=== PATIENT | male | born 1940 | race Caucasian/White ===

== ENCOUNTER 2016-09-20 16:40 | Inpatient (IN) | payer OTHER ==
--- NOTE | 2016-09-20 17:02 | EDPHY ---
H & P Smoking Status: Never smoked Time Seen by Provider: 09/20/16 16:40 HPI/ROS: CHIEF COMPLAINT: Depression HISTORY OF PRESENT ILLNESS: 76-year-old male with a history of severe depression and anxiety presents on an M1 hold for grave disability. His went to a snf 2 months ago. A couple of weeks later he was admitted to [facility] and stayed there for 5 weeks. He has been home for approximately 2 weeks. Since then he has been barely eating or drinking anything. He mainly sits around and listens to the radio all day. A billet worker from [facility] called him today and felt that he was gravely disabled. A billet worker went to his home and placed him on an M1 hold. He has been taking his psychiatric medications as prescribed. He denies suicidal or homicidal ideation. REVIEW OF SYSTEMS: Constitutional: No fever, no chills Eyes: No visual changes ENT: No sore throat Respiratory: No cough, no shortness of breath Cardiac: No chest pain Gastrointestinal: No nausea, no vomiting, no abdominal pain Genitourinary: no dysuria Musculoskeletal: No leg pain or swelling Skin: No rash Neurological: No headache (Anita Hargrove) Past Medical/Surgical History: Depression Anxiety (Anita Hargrove) Physical Exam: General Appearance: alert, appears depressed Eyes: Pupils equal and round, no conjunctival pallor ENT, Mouth: Mucous membranes moist Neck: Normal inspection Respiratory: Lungs are clear to auscultation Cardiovascular: Regular rate and rhythm Gastrointestinal: Abdomen is soft and nontender Neurological: A&O, nonfocal, normal gait Skin: Warm and dry, no rash Extremities: normal inspection Psychiatric: flat affect (Anita Hargrove S) Constitutional: Initial Vital Signs Temperature (C) 36.8 C 09/20/16 16:53 Heart Rate 58 L 09/20/16 16:53 Respiratory Rate 18 09/20/16 16:53 Blood Pressure 144/88 H 09/20/16 16:53 O2 Sat (%) 92 09/20/16 16:53 O2 Delivery Mode Room Air Allergies/Adverse Reactions: No Known Allergies Allergy (Verified 04/19/16 14:01) Home Medications: Medication Instructions Recorded Propranolol HCl 04/19/16 Abilify 10 mg (*) 09/20/16 Buspar (*) 09/20/16 CLONAZEPAM 09/20/16 Prozac 20 MG (*) 09/20/16 Medical Decision Making ED Course/Re-evaluation: 7:00 a.m.- The patient has been stable throughout my shift. He is still awaiting placement. The case will be signed out to the oncoming provider Dr. Morgan. ( Pam Pina) 7:00 a.m. patient care transferred to de . The patient is sitting in bed. He is currently without complaints. He is awaiting placement by mental health. 10:30 a.m. I was approached by case management and nursing staff because the patient would like to leave. He states that we are keeping him here like he is in care home. He is not suicidal or homicidal but is failure to thrive. According to paramedics he has feces all over his house and is completely disheveled. Plan at this point has been to admit him to a psychiatric facility which will likely take some time. This may not be beneficial to him. He may be more appropriate a snf preferably with his . Case management will be looking into this and also contacting his neighbor who is been taking care of him. 12:15 p.m. case management has worked with [facility] and have agreed to lift his hold in place for medical admission in preparation for placement at a long-term nursing facility. This is more appropriate care for this patient who is not suicidal but is depressed and not caring for himself because of separation from his . Ideally he would be at the same snf as his . Spoke with Kendra who accepted for Dr. Rios. His hold has been lifted. (Clifford Morgan) Differential Diagnosis: Partial list of the Differential diagnosis considered include but were not limited to; depression, failure to thrive, dehydration and although unlikely based on the history and physical exam, I also considered pneumonia, suicidality. (Clifford Morgan) - Data Points Laboratory Results: Laboratory Results 09/20/16 17:00 09/20/16 17:00 Medications Given: Discontinued Medications Clonazepam (Klonopin) 0.5 mg PO EDNOW ONE Stop: 09/21/16 03:46 Last Admin: 09/21/16 03:53 Dose: 0.5 mg Lorazepam (Ativan) 1 mg PO EDNOW ONE Stop: 09/20/16 19:19 Last Admin: 09/20/16 19:19 Dose: 1 mg Lorazepam (Ativan) 1 mg PO EDNOW ONE Stop: 09/21/16 10:35 Last Admin: 09/21/16 10:38 Dose: 1 mg Departure - Departure Disposition: [facility] Inpatient Acute Clinical Impression: Severe major depression Failure to thrive Qualifiers: Failure to thrive age range: in adult Qualified Code(s): R62.7 - Adult failure to thrive Condition: Fair Referrals: Patient,NotPresent [Primary Care Provider] - As per Instructions
[2016-09-20 17:11] LABS: % IMMATURE GRANULYOCYTES 0.3 % (0.0-1.1); ABSOLUTE IMMATURE GRANULOCYTES 0.03 10^3/uL (0.00-0.10); ADD DIFF? NO; ADD MORPH? NO; ADD SCAN? NO; ATYPICAL LYMPHOCYTE FLAG 0 (0-99); FRAGMENT RBC FLAG 0 (0-99); HEMOGLOBIN 16.3 g/dL (13.7-17.5); LEFT SHIFT FLG 0 (0-99); LIPEMIA HEMOLYSIS FLAG 90 (0-99); MEAN CELL HEMOGLOBIN 32.3 pg (27.9-34.1); MEAN PLATELET VOLUME 9.5 fL (8.7-11.7); PLATELET CLUMPS FLAG 0 (0-99); PLATELET COUNT 244 10^3/uL (150-400); RED BLOOD CELL COUNT 5.05 10^6/uL (4.40-6.38); RED CELL DISTRIBUTION WIDTH 13.2 % (11.5-15.2)
[2016-09-20 17:23] LABS: ANION GAP 9 mEq/L (8-16); CALCIUM 9.4 mg/dL (8.5-10.4); CARBON DIOXIDE 22 mEq/l (22-31); CHLORIDE 106 mEq/L (97-110); CREATININE 1.3 mg/dL (0.7-1.3); ETHANOL SERUM < 10 mg/dL (0-10); GLOMERULAR FILTRATION RATE 54; GLUCOSE 92 mg/dL (70-100); POTASSIUM 4.6 mEq/L (3.5-5.2); SODIUM 137 mEq/L (134-144)
[2016-09-20] MEDS ORDERED: LORazepam 1 MG TAB ONE (19:10)
[2016-09-20] MEDS ORDERED: LORazepam 1 MG TAB PO ONE (19:18)
[2016-09-21] MEDS ORDERED: clonazePAM 0.5 MG TAB PO ONE (03:45)
[2016-09-21] MEDS: busPIRone 15 MG TAB PO SCH ×2 (08:39→20:26)
[2016-09-21] MEDS: ARIPiprazole 10 MG TAB PO SCH (08:39)
[2016-09-21] MEDS ORDERED: FLUoxetine 20 MG CAP PO SCH (09:00)
[2016-09-21] MEDS ORDERED: PROPRANOLOL HCL 40 MG TAB PO SCH (09:00)
[2016-09-21] MEDS: clonazePAM 0.5 MG TAB PO PRN (09:33)
[2016-09-21] MEDS ORDERED: LORazepam 1 MG TAB PO ONE ×2 (10:34→12:19)
[2016-09-21] MEDS ORDERED: NS 1,000 ML IV ONE (12:35)
[2016-09-21] MEDS ORDERED: ACETAMINOPHEN 325 MG TAB PO PRN (12:35)
[2016-09-21] MEDS ORDERED: ONDANSETRON 4 MG/2 ML VIAL IVP PRN (12:35)
[2016-09-21] MEDS ORDERED: ONDANSETRON DISINTEGRATING 4 MG TAB PO PRN (12:35)
[2016-09-21] MEDS ORDERED: IBUPROFEN 600 MG TAB PO ONE (14:53)
--- NOTE | 2016-09-21 15:25 | GHP ---
[f rep st] HISTORY AND PHYSICAL DATE OF ADMISSION: 09/21/2016 CHIEF COMPLAINT: Failure to thrive. HISTORY OF PRESENT ILLNESS: A 76-year-old male with a history of anxiety and depression who was brought into the emergency department by a neighbor who has been providing support in the community. Neighbor reports that patient has been calling for assistance and support throughout the day into the wee hours of the night nearly every day. Upon review of his home, was found to have feces of several animals scattered throughout the home. The patient is not adequately feeding himself or caring for himself. The patient was brought into the emergency department for evaluation. In the ED, the patient denies any chest pain, any shortness of breath. Denies abdominal discomfort. Reports chronic constipation, intermittent headache. No vision changes. Denies dysuria , hematuria, lower extremity edema, rashes or subjective fevers or chills. PAST MEDICAL HISTORY: 1. Depression. 2. Anxiety. SOCIAL HISTORY: Negative for tobacco, alcohol or illicit drugs. FAMILY HISTORY: Positive for diabetes and heart disease in an elder brother. ADVANCED DIRECTIVES: Patient is full cor, full tube. He wants his to be his medical decision maker. REVIEW OF SYSTEMS: A 10-point review of systems is negative with the exception of that reported in the HPI. PHYSICAL EXAMINATION: VITAL SIGNS: Blood pressure 118/81, heart rate 68, respiratory rate 18, saturating 96% on room air, 36.5. GENERAL: This is a disheveled-appearing, elderly male in no acute distress. HEENT: Notable for dry mucous membranes. Eye exam is negative for any icterus. CARDIAC: Regular rate and rhythm. PULMONARY: Good respiratory effort. Clear to auscultation bilaterally. GASTROINTESTINAL: Positive bowel sounds. ABDOMEN: Soft. MUSCULOSKELETAL: Negative for any lower extremity edema. SKIN: Negative for any rashes. NEUROLOGIC: Patient is alert and oriented x3. PSYCHIATRIC: Appears depressed on my examination. DATA: White count 8.7, hematocrit 48.0, platelets of 244, creatinine 1.3, baseline near 1.0. U tox is positive for opiates and benzodiazepines. Alcohol is less than 10. Most recent EKG, which I personally reviewed and interpreted, shows sinus rhythm, leftward axis deviation, no acute ST-T changes. ASSESSMENT AND PLAN: This is a 76-year-old male with known depression and anxiety, presenting with failure to thrive. 1. Acute failure to thrive. Per outside reports, the patient's home is an unsafe environment and clearly patient is not effectively caring for himself. Will admit the patient for physical therapy, occupational therapy and cognitive evaluations. 2. Anxiety, depression. Patient denies any suicidal ideation but does describe nearly crippling anxiety at times and depression that keeps him from choosing to interact with the world around him, periodically feed himself, and appears to be disturbing his sleep as well. The patient is seen by mental health mid-level provider as recently as last week, and is on medical regiment to treat his anxiety and depression. Will continue these medications at this time, but suspect we may need a Psychiatry consultation and assistance for medication titration. 3. Prophylaxis with Lovenox. DIET: Regular. DISPOSITION: I expect greater than 2 midnights. The patient is going to require therapy, evaluations and complicated discharge planning for safety and placement. I have discussed the case with the emergency room physician. Patient will be triaged to the medical-surgical floor for failure to thrive. /[id number]/MODL MTDD
[2016-09-21] MEDS: PROPRANOLOL HCL 40 MG TAB PO SCH (20:27)
[2016-09-22 05:59] LABS: ANION GAP 10 mEq/L (8-16); CALCIUM 8.9 mg/dL (8.5-10.4); CARBON DIOXIDE 22 mEq/l (22-31); CHLORIDE 108 mEq/L (97-110); GLOMERULAR FILTRATION RATE > 60; GLUCOSE 84 mg/dL (70-100); POTASSIUM 4.7 mEq/L (3.5-5.2); SODIUM 140 mEq/L (134-144)
[2016-09-22] MEDS: busPIRone 15 MG TAB PO SCH ×2 (10:02→21:08)
[2016-09-22] MEDS: PROPRANOLOL HCL 40 MG TAB PO SCH ×2 (10:02→21:09)
[2016-09-22] MEDS: FLUoxetine 20 MG CAP PO SCH (10:02)
[2016-09-22] MEDS: ENOXAPARIN 40 MG/0.4 ML SYR SC SCH (10:05)
[2016-09-22] MEDS: ARIPiprazole 10 MG TAB PO SCH (10:41)
[2016-09-22] MEDS: clonazePAM 0.5 MG TAB PO PRN ×2 (15:09→21:08)
--- NOTE | 2016-09-22 15:17 | HOSPPROG ---
Hospitalist Progress Note Assessment/Plan: This is a 76-year-old male with known depression and anxiety, presenting with failure to thrive. # Acute failure to thrive- the patient's home is an unsafe environment and clearly patient is not effectively caring for himself oxygen saturations 95%on RA- - PT/OT -case management working hard to sort out options - suspect APS may need to be re-involved if patient doesn't qualify for placement # Mild dehydration - BUN and creatinine normalized overnight with 1L NS # Anxiety, depression- Patient denies any suicidal ideation but does describe nearly crippling anxiety at times and depression that keeps him from choosing to interact with the world around him, periodically feed himself, and appears to be disturbing his sleep as well. - continue home meds - patient needs ongoing MH care after dc - MH vocational case manager aware from ER # Prophylaxis with Lovenox. # diet - taking regular PO # dispo - > 2MN as requiring therapy evals for placement I have discussed the case with CM - working aggressively for dispo options Subjective: constipated Objective: Vital Signs Temp Pulse Resp BP Pulse Ox 36.5 C 60 18 138/79 H 92 09/22/16 07:34 09/22/16 07:34 09/22/16 07:34 09/22/16 07:34 09/22/16 07:34 Laboratory Results 09/22/16 02:12 09/21/16 09/22/16 09/23/16 05:59 05:59 05:59 Intake Total 2400 Balance 2400 - Physical Exam Constitutional: chronically ill appearing Eyes: anicteric sclera Ears, Nose, Mouth, Throat: moist mucous membranes Cardiovascular: regular rate and rhythym Respiratory: no respiratory distress, no rales or rhonchi Gastrointestinal: normoactive bowel sounds, soft, non-tender abdomen Genitourinary: no bladder fullness Skin: warm, normal color Musculoskeletal: No asymmetric calves Neurologic: AAOx3 Psychiatric: depressed, flat affect Lymph, Heme, Immunologic: no cervical LAD ICD10 Worksheet Patient Problems: Problems Problem Status Onset Failure to thrive Acute Severe major depression Acute
[2016-09-22] MEDS ORDERED: BISACODYL 10 MG SUPP PR PRN (16:22)
[2016-09-22] MEDS ORDERED: MAGNESIUM HYDROXIDE 30 ML UDCUP PO PRN (16:22)
[2016-09-22] MEDS ORDERED: LACTULOSE 20 GM/30 ML UDCUP PO PRN (16:22)
[2016-09-22] MEDS: POLYETHYLENE GLYCOL 3350 17 GM PKT PO PRN (17:40)
[2016-09-22] MEDS: SENNOSIDES/DOCUSATE SODIUM TAB PO SCH (21:08)
[2016-09-23] MEDS: ARIPiprazole 10 MG TAB PO SCH (08:28)
[2016-09-23] MEDS: busPIRone 15 MG TAB PO SCH ×2 (08:28→18:41)
[2016-09-23] MEDS: FLUoxetine 20 MG CAP PO SCH (08:28)
[2016-09-23] MEDS: PROPRANOLOL HCL 40 MG TAB PO SCH ×2 (08:28→18:41)
[2016-09-23] MEDS: SENNOSIDES/DOCUSATE SODIUM TAB PO SCH ×2 (08:30→18:41)
[2016-09-23] MEDS: clonazePAM 0.5 MG TAB PO PRN (08:33)
[2016-09-23] MEDS: POLYETHYLENE GLYCOL 3350 17 GM PKT PO PRN (08:38)
[2016-09-23] MEDS: ENOXAPARIN 40 MG/0.4 ML SYR SC SCH (08:40)
--- NOTE | 2016-09-23 17:57 | HOSPPROG ---
Hospitalist Progress Note Assessment/Plan: assessment: 76-year-old male presented to [facility] after [facility] placed him on an M1 hold secondary to safety concerns regarding poor self care, in the setting of anxiety and depression Plan: 1. anxiety and depression. Chronic, patient reports that his depression over the last couple years has led to poor functioning at home - [facility] crisis Center had safety concerns placed him on an M1 hold, then discharging him from the M1 hold in our emergency department - I contacted [facility] today and requested that EPS reassess the patient determine whether he is appropriate for inpatient Behavioral Health stabilization regarding his depression, since [facility] where the original democrat who placed the patient on an M1 hold leading to this presentation - EPS has evaluated the patient and determined that he will be safe to be discharged back into his home environment with increased structure and socialization - renal case manager /social media developer has been intimately involved in the patient's care and she will spend time tomorrow morning with the patient discussing his available resources so that he is able to be safely transitioned back into his home environment - the original perception that we would be able to place the patient in long- term care at [facility] was thought in the patient has no skilled needs and cannot go there for rehab and if he is to pursue long-term care at that facility, he will be financially responsible and the patient is unwilling to take on the responsibility at this time - given the patient has capacity to make medical decisions, he is capable of deciding to be discharged home and this will be facilitated in a safe manner tomorrow morning Diet. Regular Prophylaxis. Low risk patient, SCDs in bed Full Disposition. Anticipated discharge is 09/2019 1:00 a.m. after patient has had arrangements made by case management Subjective: the patient wants to be discharged home, he is anxious about missing his [facility] appointment Objective: Vital Signs Temp Pulse Resp BP Pulse Ox 36.7 C 60 16 119/77 92 09/23/16 16:30 09/23/16 16:30 09/23/16 16:30 09/23/16 16:30 09/23/16 16:30 Laboratory Results 09/22/16 02:12 09/22/16 09/23/16 09/24/16 05:59 05:59 05:59 Intake Total 2400 300 350 Balance 2400 300 350 - Time Spent With Patient Time Spent with Patient: greater than 35 minutes Time Spent with Patient: Greater than 35 minutes spent on this patients care, greater than 50% of time spent counseling, educating, and coordinating care regarding the above mentioned plan. - Physical Exam Constitutional: not in pain, unkempt Cardiovascular: regular rate and rhythym, no murmur, rub, or gallop Respiratory: no respiratory distress, no rales or rhonchi, clear to auscultation Gastrointestinal: normoactive bowel sounds, soft, non-tender abdomen, no palpable masses Neurologic: AAOx3 Psychiatric: interacting appropriately, not encephalopathic, anxious, depressed , No agitated ICD10 Worksheet Patient Problems: Problems Problem Status Onset Severe major depression Acute Failure to thrive Acute
[2016-09-24] MEDS: busPIRone 15 MG TAB PO SCH ×2 (08:45→21:08)
[2016-09-24] MEDS: FLUoxetine 20 MG CAP PO SCH (08:45)
[2016-09-24] MEDS: ARIPiprazole 10 MG TAB PO SCH (08:45)
[2016-09-24] MEDS: PROPRANOLOL HCL 40 MG TAB PO SCH ×2 (08:46→21:08)
[2016-09-24] MEDS: SENNOSIDES/DOCUSATE SODIUM TAB PO SCH ×2 (08:57→21:09)
--- NOTE | 2016-09-24 14:01 | HOSPPROG ---
Hospitalist Progress Note Assessment/Plan: Assessment: 76-year-old male presented to [facility] after [facility] placed him on an M1 hold secondary to safety concerns regarding poor self care, in the setting of anxiety and depression. Today he reports generalized weakness and per PT's evaluation he is too weak to be a candidate for home discharge as he is felt to required a SNF placement. Plan: 1. anxiety and depression. Chronic, patient reports that his depression over the last couple years has led to poor functioning at home - [facility] crisis Center had safety concerns placed him on an M1 hold, then discharging him from the M1 hold in our emergency department 2. Generalized Weakness: -PT/OT -Will need SNF placement 3. FTT Diet. Regular Prophylaxis. Low risk patient, SCDs in bed Full Code Disposition. Awaiting placement. Subjective: Feels weak and unsteady. No SOB, Cough, N/V/D, Fever, Diarrhea. Oral intake is appropriate Objective: Vital Signs Temp Pulse Resp BP Pulse Ox 36.6 C 68 15 130/85 H 92 09/24/16 06:28 09/24/16 08:46 09/24/16 06:28 09/24/16 08:46 09/24/16 06:28 Laboratory Results 09/22/16 02:12 09/23/16 09/24/16 09/25/16 05:59 05:59 05:59 Intake Total 300 1550 Balance 300 1550 - Physical Exam Constitutional: no apparent distress, appears nourished Eyes: PERRL, EOMI Ears, Nose, Mouth, Throat: moist mucous membranes, hearing normal Cardiovascular: regular rate and rhythym, No JVD, No tachycardia Respiratory: no respiratory distress, no rales or rhonchi, clear to auscultation Gastrointestinal: normoactive bowel sounds, soft, non-tender abdomen Genitourinary: no bladder fullness Skin: warm, normal color Musculoskeletal: generalized weakness Neurologic: AAOx3, No facial droop Psychiatric: interacting appropriately, not anxious, not encephalopathic ICD10 Worksheet Patient Problems: Problems Problem Status Onset Failure to thrive Acute Severe major depression Acute
[2016-09-24] MEDS ORDERED: clonazePAM 0.5 MG TAB PO PRN (17:00)
[2016-09-25 06:51] VITALS: RESP 16
[2016-09-25] MEDS: busPIRone 15 MG TAB PO SCH (09:30)
[2016-09-25] MEDS: PROPRANOLOL HCL 40 MG TAB PO SCH (09:30)
[2016-09-25] MEDS: ARIPiprazole 10 MG TAB PO SCH (09:30)
[2016-09-25] MEDS: FLUoxetine 20 MG CAP PO SCH (09:31)
[2016-09-25] MEDS: SENNOSIDES/DOCUSATE SODIUM TAB PO SCH (09:31)
--- NOTE | 2016-09-25 11:59 | HOSPPROG ---
Hospitalist Progress Note Assessment/Plan: Assessment: 76-year-old male presented to [facility] after [facility] placed him on an M1 hold secondary to safety concerns regarding poor self care, in the setting of anxiety and depression. per PT's evaluation he is too weak to be a candidate for home discharge as he is felt to required a SNF placement. Today his weakness is improving. He is awaiting placement Plan: 1. anxiety and depression. Chronic, patient reports that his depression over the last couple years has led to poor functioning at home 2. Generalized Weakness, improving. -PT/OT -Will need SNF placement, pending 3. FTT Diet. Regular Prophylaxis. Low risk patient, SCDs in bed Full Code Disposition. Awaiting placement. Subjective: weakness is improving. He is not sure if he wants a SNF at this time. Placement is pending. Objective: Vital Signs Temp Pulse Resp BP Pulse Ox 36.5 C 64 16 127/76 H 91 L 09/25/16 08:20 09/25/16 08:20 09/25/16 08:20 09/25/16 08:20 09/25/16 08:20 Laboratory Results 09/22/16 02:12 09/24/16 09/25/16 09/26/16 05:59 05:59 05:59 Intake Total 1550 400 Balance 1550 400 - Physical Exam Constitutional: no apparent distress, appears nourished, not in pain Eyes: PERRL, anicteric sclera, EOMI Ears, Nose, Mouth, Throat: moist mucous membranes, hearing normal, ears appear normal, no oral mucosal ulcers Cardiovascular: regular rate and rhythym, no murmur, rub, or gallop Respiratory: no respiratory distress, no rales or rhonchi, clear to auscultation Genitourinary: no bladder fullness Skin: warm, normal color Musculoskeletal: generalized weakness Neurologic: AAOx3 Psychiatric: interacting appropriately, not anxious ICD10 Worksheet Patient Problems: Problems Problem Status Onset Failure to thrive Acute Severe major depression Acute
[2016-09-25 15:57] VITALS: BP 116/81; PULSE 65; TEMP 98; O2SAT 92
--- NOTE | 2016-09-25 15:58 | PDDCSUM ---
Discharge Summary Discharge Summary: HOSPITAL COURSE: 76-year-old male presented to [facility] after [facility] placed him on an M1 hold secondary to safety concerns regarding poor self care, in the setting of anxiety and depression. He was initially weak but has improved with PT/OT. Now felt safe to return home. The patient wants to go home. He does not want a SNF. DDX: 1. anxiety and depression. Chronic, patient reports that his depression over the last couple years has led to poor functioning at home 2. Generalized Weakness, improving. 3. FTT f/u with PCP in one week DC exam: see progress note from today DC Meds: See med Rec total care time spent on discharge including coordination of care is 35 minutes
== END 2016-09-25 18:17 | disposition home or self-care (01) | DRG 641 ==
LOC: EDUNIT# → OBSVTOIN 09-21 12:35 → F1N 09-21 15:42
PROVIDERS: ADMIT Hospitalist; ATTEND Hospitalist
DX: R62.7 Adult failure to thrive (principal); F32.2 Major depressive disorder, single episode, severe without psychotic features; F41.9 Anxiety disorder, unspecified; E86.0 Dehydration; R53.1 Weakness
CPT/HCPCS: 80305; 92523-GN; 97116-GP; 97161-GP; 97165-GO; 97530-GP; 97535-GO; G0480; G8978-GP-CI; G8979-GP-CI; G8980-GP-CI; G8987-GO-CI; G8988-GO-CH; G9168-GN-CH; G9169-GN-CH; G9170-GN-CH; J1650

== ENCOUNTER 2016-10-22 10:10 | Inpatient (IN) | payer OTHER ==
--- NOTE | 2016-10-22 10:16 | EDPHY ---
H & P HPI/ROS: CHIEF COMPLAINT: Weakness, depression HISTORY OF PRESENT ILLNESS: Patient arrives by EMS and is seen at time of arrival. He complains of generalized weakness over the past few days. Gradual onset. Constant duration. [id number] symptoms. No chest pain. No shortness of breath. No cough. No abdominal pain. No urinary complaints. No rashes or lesion. No neck pain or stiffness. No headache. Just feels generalized weakness throughout his entire person. Has been taking his prescribed medications with no changes in the dosing. Has not missed any. Also reports feeling somewhat depressed. He denies any suicidal ideation. No homicidal ideation. Depression is not new for him but has increased recently. No other associated complaints or modifying factors. Patient lives at home alone. He contacted EMS. REVIEW OF SYSTEMS: Ten systems reviewed and are negative unless otherwise noted in the HPI PERTINENT MEDICAL HISTORY: Reviewed EXAMINATION General Appearance: Alert, no distress Head: normocephalic, atraumatic Eyes: Pupils equal and round, no conjunctival pallor or injection ENT, Mouth: Mucous membranes moist. Uvula midline. No erythema or edema Neck: Normal inspection, supple, non-tender Respiratory: Lungs are clear to auscultation. No wheezing, rhonchi or crackles Cardiovascular: Regular rate and rhythm. No murmur. Pulses intact distally Gastrointestinal: Abdomen is soft and nontender. No tympany rigidity. Back: non-tender, no bony abnormalities Neurological: A&O, nonfocal, normal gait. Strength is symmetric in all limbs. No pronator drift. No dysmetria. GCS 15. Skin: Warm and dry, no rash. No petechiae or purpura. Extremities: Nontender, no pedal edema. Symmetric range of motion all 4 limbs. Psychiatric: Mood and affect normal DIFFERENTIAL DIAGNOSES: Including but not limited to weakness, dehydration, urinary tract infection, pneumonia, electrolyte disturbance, depression, influenza MDM: 10:15 a.m. Generalized weakness with some depression. No suicidal ideation. No homicidal ideation. No chest pain, cough, fever, abdominal pain or urinary complaints. Seen at time of arrival by EMS. No acute distress. Vital signs stable. 11:20 a.m. Chest x-ray reveals a left lower lobe pneumonia. No leukocytosis. No fever. No tachycardia. No tachypnea. No hypotension. Oxygenation is 91-93% on room air. He is in no acute distress. 12:15 p.m. Left lobe pneumonia which does qualify as healthcare associated pneumonia. He does not trigger SIRS criteria, thus I did not initially order blood cultures and lactic acid. I discussed the case with the hospitalist, the patient will be admitted to Dr. Duncan. Hospitalist has requested blood cultures and lactic acid. These will be performed prior to administering cefepime and vancomycin. He is admitted in stable condition. 1:30 p.m. Patient remains in the emergency department waiting for his inpatient bed. He is in no acute distress, but when he falls asleep he does become hypoxic into the upper 80s on room air. Will place him on nasal cannula oxygen. SUPERVISION: This patient was independently evaluated without direct examination by the attending physician. Case was discussed with attending physician. Source: Patient, EMS Exam Limitations: No limitations - Medical/Surgical History Hx Asthma: No Hx Chronic Respiratory Disease: No Hx Diabetes: No Hx Cardiac Disease: Yes Hx Renal Disease: No Hx Cirrhosis: No Hx Alcoholism: No Hx HIV/AIDS: No Hx Splenectomy or Spleen Trauma: No Other PMH: htn, clean cardiac cath, depression, anxiety - Social History Smoking Status: Never smoked Constitutional: Initial Vital Signs Temperature (C) 96.8 F 10/22/16 10:21 Heart Rate 69 10/22/16 10:21 Respiratory Rate 18 10/22/16 10:21 Blood Pressure 148/90 H 10/22/16 10:21 O2 Sat (%) 91 L 10/22/16 10:21 O2 Delivery Mode Room Air Allergies/Adverse Reactions: No Known Allergies Allergy (Verified 04/19/16 14:01) Home Medications: Medication Instructions Recorded ARIPiprazole [Abilify 10 mg (*)] 10 mg PO DAILY 09/21/16 FLUoxetine [Prozac 20 MG (*)] 80 mg PO DAILY 09/21/16 Propranolol HCl [Inderal 40mg (*)] 40 mg PO BIDMEAL 09/21/16 busPIRone [Buspar (*)] 30 mg PO BID 09/21/16 clonazePAM [Klonopin (*)] 0.5 mg PO BID PRN 09/21/16 Omeprazole [Prilosec 20 mg] 40 mg PO DAILY 10/22/16 Medical Decision Making - Diagnostics Imaging Results: Imaging Impressions Chest X-Ray 10/22/16 10:15 Impression: 1. Suspect left lower lobe pneumonia. 2. Recommend follow-up until clear. - Data Points Laboratory Results: Laboratory Results 10/22/16 10:48 10/22/16 10:48 10/22/16 10/22/16 10/22/16 11:22 10:48 10:48 WBC 6.97 10^3/uL 10^3/uL (3.80-9.50) RBC 5.00 10^6/uL 10^6/uL (4.40-6.38) Hgb 15.5 g/dL g/dL (13.7-17.5) Hct 46.5 % % (40.0-51.0) MCV 93.0 fL fL (81.5-99.8) MCH 31.0 pg pg (27.9-34.1) MCHC 33.3 g/dL g/dL (32.4-36.7) RDW 12.5 % % (11.5-15.2) Plt Count 219 10^3/uL 10^3/uL (150-400) MPV 9.2 fL fL (8.7-11.7) Neut % (Auto) 74.7 % H % (39.3-74.2) Lymph % (Auto) 17.6 % % (15.0-45.0) [place] % (Auto) 5.6 % % (4.5-13.0) Eos % (Auto) 1.4 % % (0.6-7.6) Baso % (Auto) 0.4 % % (0.3-1.7) Nucleat RBC Rel Count 0.0 % % (0.0-0.2) Absolute Neuts (auto) 5.20 10^3/uL 10^3/uL (1.70-6.50) Absolute Lymphs (auto) 1.23 10^3/uL 10^3/uL (1.00-3.00) Absolute Monos (auto) 0.39 10^3/uL 10^3/uL (0.30-0.80) Absolute Eos (auto) 0.10 10^3/uL 10^3/uL (0.03-0.40) Absolute Basos (auto) 0.03 10^3/uL 10^3/uL (0.02-0.10) Absolute Nucleated RBC 0.00 10^3/uL 10^3/uL (0-0.01) Immature Gran % 0.3 % % (0.0-1.1) Immature Gran # 0.02 10^3/uL 10^3/uL (0.00-0.10) Sodium 144 mEq/L mEq/L (134-144) Potassium 4.2 mEq/L mEq/L (3.5-5.2) Chloride 107 mEq/L mEq/L (97-110) Carbon Dioxide 25 mEq/l mEq/l (22-31) Anion Gap 12 mEq/L mEq/L (8-16) BUN 24 mg/dL H mg/dL (7-23) Creatinine 1.0 mg/dL mg/dL (0.7-1.3) Estimated GFR > 60 Glucose 93 mg/dL mg/dL (70-100) Calcium 9.2 mg/dL mg/dL (8.5-10.4) CK-MB (CK-2) Fraction 1.68 ng/mL ng/mL (0-3.19) Troponin I < 0.012 ng/mL ng/mL (0-0.034) Prealbumin 26.1 mg/dL mg/dL (17.6-36.0) Lipase 61.0 IU/L IU/L (23-300) TSH 1.540 uIU/mL uIU/mL (0.465-4.680) Influenza Typ A,B (DFA) NEGATIVE FOR FLU (NEGATIVE) Medications Given: Discontinued Medications Clonazepam (Klonopin) 0.5 mg PO EDNOW ONE Stop: 10/22/16 11:39 Last Admin: 10/22/16 11:52 Dose: 0.5 mg Clonazepam (Klonopin) 0.5 mg PO EDNOW ONE Stop: 10/22/16 12:17 Last Admin: 10/22/16 12:20 Dose: 0.5 mg Departure - Departure Disposition: [facility] Acute Clinical Impression: HCAP (healthcare-associated pneumonia), Weakness Failure to thrive Qualifiers: Failure to thrive age range: in adult Qualified Code(s): R62.7 - Adult failure to thrive Condition: Good
--- NOTE | 2016-10-22 10:55 | CPEKG ---
Heart Rate: 66 RR Interval: 909 P-R Interval: 172 QRSD Interval: 82 QT Interval: 404 QTC Interval: 424 P [place]: 26 QRS [place]: -17 T Wave [place]: 3 EKG Severity - OTHERWISE NORMAL ECG - EKG Impression: SINUS RHYTHM EKG Impression: BORDERLINE LEFT AXIS DEVIATION Electronically Signed By: Clifford Morgan 22-Oct-2016 13:44:13
[2016-10-22 11:00] LABS: % IMMATURE GRANULYOCYTES 0.3 % (0.0-1.1); ABSOLUTE IMMATURE GRANULOCYTES 0.02 10^3/uL (0.00-0.10); ADD DIFF? NO; ADD MORPH? NO; ADD SCAN? NO; ATYPICAL LYMPHOCYTE FLAG 0 (0-99); FRAGMENT RBC FLAG 0 (0-99); HEMATOCRIT 46.5 % (40.0-51.0); HEMOGLOBIN 15.5 g/dL (13.7-17.5); LEFT SHIFT FLG 0 (0-99); LIPEMIA HEMOLYSIS FLAG 80 (0-99); MEAN CELL HEMOGLOBIN CONCENTR. 33.3 g/dL (32.4-36.7); MEAN PLATELET VOLUME 9.2 fL (8.7-11.7); PLATELET CLUMPS FLAG 0 (0-99); PLATELET COUNT 219 10^3/uL (150-400); RED CELL DISTRIBUTION WIDTH 12.5 % (11.5-15.2)
[2016-10-22 11:15] LABS: ANION GAP 12 mEq/L (8-16); CALCIUM 9.2 mg/dL (8.5-10.4); CARBON DIOXIDE 25 mEq/l (22-31); CHLORIDE 107 mEq/L (97-110); GLOMERULAR FILTRATION RATE > 60; GLUCOSE 93 mg/dL (70-100); POTASSIUM 4.2 mEq/L (3.5-5.2); SODIUM 144 mEq/L (134-144)
[2016-10-22 11:28] LABS: CREATINE KINASE-MB FRACTION 1.68 ng/mL (0-3.19); TROPONIN I < 0.012 ng/mL (0-0.034)
[2016-10-22] MEDS ORDERED: clonazePAM 0.5 MG TAB PO ONE ×2 (11:38→12:16)
[2016-10-22 12:03] LABS: PREALBUMIN 26.1 mg/dL (17.6-36.0)
[2016-10-22] MEDS ORDERED: CEFEPIME HCL 2 GM in D5W 100 ML IV ONE (12:12)
[2016-10-22] MEDS ORDERED: VANCOMYCIN HCL/NORMAL SALINE 250 ML IV ONE (12:12)
[2016-10-22] MEDS ORDERED: ACETAMINOPHEN 325 MG TAB PO PRN (13:24)
[2016-10-22] MEDS ORDERED: ONDANSETRON DISINTEGRATING 4 MG TAB PO PRN (13:24)
[2016-10-22] MEDS ORDERED: ONDANSETRON 4 MG/2 ML VIAL IVP PRN (13:24)
[2016-10-22] MEDS ORDERED: oxyCODONE IR 5 MG TAB PO PRN (13:24)
[2016-10-22] MEDS ORDERED: levOFLOXACIN 750 MG/DEXTROSE/150 ML BAG IV ONE (13:56)
--- NOTE | 2016-10-22 14:29 | GHP ---
[f rep st] HISTORY AND PHYSICAL DATE OF ADMISSION: 10/22/2016 CHIEF COMPLAINT: Depression and weakness. HISTORY OF PRESENT ILLNESS: This is a 76-year-old man who was just recently admitted for failure to thrive, discharged home after he had regained some strength, who presents with weakness. Today, he called EMS because he has been feeling weaker. He says that this is a global issue, has been going on for weeks to months. He has also had some worsening depression. Notably, his is currently in assisted living unable to return home. She had previously been in a shelter facility af ter a fall. His depression has gotten worse since she has been away, which he says has been months. He denies any suicidal ideation. He notably has not had a fever at home. No cough, no dysuria. PAST MEDICAL/SURGICAL HISTORY: 1. Depression. 2. Anxiety. 3. Recent admission here for depression and failure to thrive. MEDICATIONS: Please see medication reconciliation. ALLERGIES: No known drug allergies. SOCIAL HISTORY: He lives at home by himself. His is currently in assisted living facility. D oes not drink or smoke. FAMILY HISTORY: Diabetes. REVIEW OF SYSTEMS: A 10-point review of systems is conducted and is negative except per HPI. PHYSICAL EXAM: VITAL SIGNS: Blood pressure 143/105, heart rate 69, respiration rate 18, saturating 94% on room air, temperature is 36.6. GENERAL: The patient is a pleasant man who appears somewhat depressed, otherwise in no acute distress. HEENT: Shows him to be normocephalic, atraumatic. CAR DIOVASCULAR: Shows a regular rate and rhythm. No murmurs, rubs, or gallops. PULMONARY: Shows his lungs to have distant breath sounds throughout, but I do not appreciate any abnormal respiratory so unds. ABDOMEN: Soft, nontender, nondistended. SKIN: Exam shows no rash. : Exam shows no Fole y. NEUROLOGIC: Exam shows him to be alert and oriented x3. He is moving all extremities. PSYCHIA TRIC: Shows a normal mood and affect. LABS: White count is 6.9, lactate 0.8. Basic metabolic panel is normal. Troponin is negative. Pr e-albumin is 26. He is negative for influenza. DATA: 1. I reviewed his chart. 2. I personally reviewed and interpreted his EKG. EKG is currently unavailable in our system. 3. I discussed this with Fawad Rebolledo PA-C in the emergency department. 4. I personally viewed and interpreted his chest x-ray. This shows possible left lower lobe pneumo aisha. IMPRESSION AND PLAN: A 76-year-old man admitted with ongoing weakness, possible left lower lobe pne umonia. 1. Left lower lobe pneumonia: He technically meets the definition of healthcare associated, howeve r, he is not septic, no white count, has a very borderline pneumonia on x-ray. I will start treatme nt as a community-acquired pneumonia and repeat a chest x-ray in the morning. Low threshold to broa den antibiotics if he decompensates at all though he is not hypoxic, no fever, not tachycardic at th is point. Blood cultures have been sent. 2. Weakness: May be due to left lower lobe pneumonia. I am also very suspicious of this being psy chogenic in the setting of severe depression. I have asked Janel Weber to see him. Hopefully, she w ill be able to see him tomorrow. If not, I would ask for a psychiatry consult. Will have physical therapy, occupational therapy work with him. He may qualify for shelter facility. 3. Depression: Will continue his Abilify, Prozac. 4. Anxiety: Continue his Klonopin for now. 5. Possible essential tremor: I note that he is on propranolol, I believe this very central tremor and not hypertension. I will continue this. 6. Code status: He is full code. 7. Venous thromboembolism risk: He is moderate to high. I will give him Lovenox. /[id number]/MODL
--- NOTE | 2016-10-22 15:43 | CPEKG ---
Heart Rate: 70 RR Interval: 857 P-R Interval: 168 QRSD Interval: 82 QT Interval: 404 QTC Interval: 436 P [place]: 12 QRS [place]: -19 T Wave [place]: -6 EKG Severity - BORDERLINE ECG - EKG Impression: SINUS RHYTHM EKG Impression: BORDERLINE LEFT AXIS DEVIATION EKG Impression: BORDERLINE T ABNORMALITIES, INFERIOR LEADS Electronically Signed By: Jessee Paz 23-Oct-2016 08:23:54
[2016-10-22] MEDS: clonazePAM 0.5 MG TAB PO PRN (16:16)
[2016-10-22] MEDS: PROPRANOLOL HCL 40 MG TAB PO SCH (17:25)
[2016-10-22] MEDS: LORazepam 1 MG TAB PO PRN ×2 (17:25→20:08)
[2016-10-22 17:29] LABS: COLOR YELLOW; LEUKOCYTE ESTERASE,URINE NEGATIVE (NEGATIVE); NITRITE,URINE NEGATIVE (NEGATIVE)
[2016-10-22] MEDS: busPIRone 15 MG TAB PO SCH (20:08)
[2016-10-22] MEDS ORDERED: traZODone 50 MG TAB PO ONE (21:30)
[2016-10-23] MEDS: PROPRANOLOL HCL 40 MG TAB PO SCH ×2 (08:22→18:16)
[2016-10-23] MEDS: ENOXAPARIN 40 MG/0.4 ML SYR SC SCH (08:23)
[2016-10-23] MEDS: busPIRone 15 MG TAB PO SCH ×2 (08:23→20:46)
[2016-10-23] MEDS: ARIPiprazole 10 MG TAB PO SCH (08:23)
[2016-10-23] MEDS: PANTOPRAZOLE SODIUM 40 MG TAB PO SCH (08:24)
[2016-10-23] MEDS: FLUoxetine 20 MG CAP PO SCH (08:24)
[2016-10-23 08:30] LABS: % IMMATURE GRANULYOCYTES 0.3 % (0.0-1.1); ABSOLUTE IMMATURE GRANULOCYTES 0.02 10^3/uL (0.00-0.10); ADD DIFF? NO; ADD MORPH? NO; ADD SCAN? NO; ATYPICAL LYMPHOCYTE FLAG 10 (0-99); FRAGMENT RBC FLAG 0 (0-99); HEMATOCRIT 44.6 % (40.0-51.0); HEMOGLOBIN 15.1 g/dL (13.7-17.5); LEFT SHIFT FLG 0 (0-99); LIPEMIA HEMOLYSIS FLAG 90 (0-99); MEAN CELL HEMOGLOBIN 31.1 pg (27.9-34.1); MEAN CELL HEMOGLOBIN CONCENTR. 33.9 g/dL (32.4-36.7); MEAN PLATELET VOLUME 9.2 fL (8.7-11.7); PLATELET CLUMPS FLAG 10 (0-99); PLATELET COUNT 214 10^3/uL (150-400); RED BLOOD CELL COUNT 4.85 10^6/uL (4.40-6.38); RED CELL DISTRIBUTION WIDTH 12.4 % (11.5-15.2)
[2016-10-23 08:37] LABS: INR 1.01 (0.83-1.16); PROTIME(PATIENT) 13.2 SEC (12.0-15.0)
[2016-10-23 08:52] LABS: ALANINE AMINOTRANSFERASE 20 IU/L (21-72); ALBUMIN 3.8 g/dL (3.5-5.0); ALKALINE PHOSPHATASE 74 IU/L (38-126); ANION GAP 10 mEq/L (8-16); ASPARTATE AMINOTRANSFERASE 15 IU/L (17-59); BILIRUBIN,TOTAL 1.1 mg/dL (0.1-1.4); CALCIUM 9.2 mg/dL (8.5-10.4); CARBON DIOXIDE 24 mEq/l (22-31); CHLORIDE 107 mEq/L (97-110); GLOMERULAR FILTRATION RATE > 60; GLUCOSE 95 mg/dL (70-100); POTASSIUM 4.5 mEq/L (3.5-5.2); SODIUM 141 mEq/L (134-144); TOTAL PROTEIN 6.4 g/dL (6.3-8.2)
[2016-10-23] MEDS ORDERED: NON-FORMULARY NEW DRUG (Omeprazole [Prilosec 20 Mg] 40 MG) PO SCH (09:00)
--- NOTE | 2016-10-23 13:03 | HOSPPROG ---
Hospitalist Progress Note Assessment/Plan: # possible pneumonia - cont levaquin - refused f/u CXR today # depression/anxiety - followed by [facility]; may be driving some of his somatic complaints - Janel Weber to see; ECT? - cont prozac, abilify, klonopin, ativan prn # essential tremor - propranolol # social - CM to evaluate his home living situation; his lives at [facility] Subjective: feels very depressed today; no cough or SOB Objective: Vital Signs Temp Pulse Resp BP Pulse Ox 36.4 C 61 12 114/84 H 92 10/23/16 08:00 10/23/16 08:22 10/23/16 08:00 10/23/16 08:22 10/23/16 08:00 Laboratory Results 10/23/16 08:21 10/23/16 08:21 10/22/16 10/23/16 10/24/16 05:59 05:59 05:59 Intake Total 900 Output Total 200 200 Balance 700 -200 PT 13.2 SEC (12.0-15.0) 10/23/16 08:21 INR 1.01 (0.83-1.16) 10/23/16 08:21 - Physical Exam Constitutional: no apparent distress, appears nourished, other (flat affect) Cardiovascular: regular rate and rhythym, no murmur, rub, or gallop Respiratory: no respiratory distress, no rales or rhonchi, clear to auscultation Gastrointestinal: normoactive bowel sounds, soft, non-tender abdomen, no palpable masses ICD10 Worksheet Patient Problems: Problems Problem Status Onset Chronic Disease [facility]/Transitional Care Acute Severe major depression Acute Failure to thrive Acute HCAP (healthcare-associated pneumonia) Acute Failure to thrive Acute Weakness Acute
[2016-10-23] MEDS: clonazePAM 0.5 MG TAB PO PRN (13:18)
[2016-10-23] MEDS: LORazepam 1 MG TAB PO PRN ×2 (14:55→20:47)
[2016-10-23] MEDS: traZODone 50 MG TAB PO SCH (20:47)
--- NOTE | 2016-10-24 08:21 | HOSPPROG ---
Hospitalist Progress Note Assessment/Plan: Patient was recently admitted here for FTT/ he called EMS due to weakness. Today is my first encounter with the patient, chart reviewed. # possible pneumonia - cont levaquin (change to oral) - refused f/u chest xray - blood cx show no growth # depression/anxiety - followed by [facility]; may be driving some of his somatic complaints - Janel Weber to see; - cont prozac, abilify, klonopin, ativan prn -has had 9 ECT treatments the past that he did not feel were helpful #General fatigue, no energy -TSH stable -check a.m. cortisol -trial of Vitamin B 12 shots x 3 days -eating well # essential tremor - propranolol # social - CM to evaluate his home living situation; his lives at [facility] #Plan: reviewed his care with Janel Weber/ she is getting records from [facility]/ appreciate her involvement Subjective: Sukumar says he is tired, depressed, not suicidal. Says he sleeps frequently and appetite is fine. Objective: Vital Signs Temp Pulse Resp BP Pulse Ox 36.6 C 53 L 16 115/67 95 10/24/16 07:52 10/24/16 07:52 10/24/16 07:52 10/24/16 07:52 10/24/16 07:52 Laboratory Results 10/23/16 08:21 10/23/16 08:21 10/23/16 10/24/16 10/25/16 05:59 05:59 05:59 Intake Total 900 500 Output Total 200 200 Balance 700 300 PT 13.2 SEC (12.0-15.0) 10/23/16 08:21 INR 1.01 (0.83-1.16) 10/23/16 08:21 - Physical Exam Constitutional: no apparent distress, appears nourished, not in pain Eyes: PERRL Ears, Nose, Mouth, Throat: hearing normal Cardiovascular: regular rate and rhythym Respiratory: no respiratory distress Gastrointestinal: normoactive bowel sounds Skin: warm, normal color Musculoskeletal: full muscle strength Neurologic: AAOx3 Psychiatric: depressed, flat affect ICD10 Worksheet Patient Problems: Problems Problem Status Onset Chronic Disease Mgmt/Transitional Care Acute Failure to thrive Acute HCAP (healthcare-associated pneumonia) Acute Weakness Acute Failure to thrive Acute Severe major depression Acute
[2016-10-24] MEDS: busPIRone 15 MG TAB PO SCH ×2 (09:25→21:12)
[2016-10-24] MEDS: PROPRANOLOL HCL 40 MG TAB PO SCH ×2 (09:25→17:59)
[2016-10-24] MEDS: FLUoxetine 20 MG CAP PO SCH (09:26)
[2016-10-24] MEDS: PANTOPRAZOLE SODIUM 40 MG TAB PO SCH (09:26)
[2016-10-24] MEDS: ARIPiprazole 10 MG TAB PO SCH (09:26)
[2016-10-24] MEDS: ENOXAPARIN 40 MG/0.4 ML SYR SC SCH (10:43)
[2016-10-24] MEDS: LORazepam 1 MG TAB PO PRN ×2 (11:46→17:59)
[2016-10-24] MEDS: CYANO/VITAMIN B12 1000 MCG/ML VIAL IM SCH (12:46)
[2016-10-24] MEDS ORDERED: POLYETHYLENE GLYCOL 3350 17 GM PKT PO PRN (13:54)
[2016-10-24] MEDS ORDERED: BISACODYL 10 MG SUPP PR PRN (13:54)
[2016-10-24] MEDS ORDERED: MAGNESIUM HYDROXIDE 30 ML UDCUP PO PRN (13:54)
[2016-10-24] MEDS ORDERED: LACTULOSE 20 GM/30 ML UDCUP PO PRN (13:54)
[2016-10-24] MEDS: clonazePAM 0.5 MG TAB PO PRN (15:17)
[2016-10-24] MEDS: SENNOSIDES/DOCUSATE SODIUM TAB PO SCH (21:12)
[2016-10-24] MEDS: traZODone 50 MG TAB PO SCH (21:12)
[2016-10-25] MEDS ORDERED: COSYNTROPIN 0.25 MG/2 ML SYRINGE IVP ONE (06:00)
--- NOTE | 2016-10-25 09:18 | HOSPPROG ---
Hospitalist Progress Note Assessment/Plan: Patient was recently admitted here for FTT/ he called EMS due to weakness. # possible pneumonia - cont levaquin (change to oral) - refused f/u chest xray - blood cx show no growth - dc levaquin on 10/26 # depression/anxiety - followed by [facility]; may be driving some of his somatic complaints - Janel Weber seeing him today - cont prozac, abilify, klonopin, ativan prn - has had 9 ECT treatments the past that he did not feel were helpful #General fatigue, no energy -TSH stable -cortisol level stable -trial of Vitamin B 12 shots x 3 days -eating well # essential tremor/gait disturbances- propranolol -will ask neurology to see -? if he has parkinsonism # social - CM to evaluate his home living situation; his lives at [facility] #Plan: reviewed his care with Janel Weber/ will have neurology see/ complicated situation with worsening depression, gait issues Subjective: Sukumar said he's depressed. Objective: Vital Signs Temp Pulse Resp BP Pulse Ox 36.3 C 54 L 16 111/64 93 10/25/16 08:00 10/25/16 08:00 10/25/16 08:00 10/25/16 08:00 10/25/16 08:00 Laboratory Results 10/23/16 08:21 10/23/16 08:21 10/24/16 10/25/16 10/26/16 05:59 05:59 05:59 Intake Total 500 720 Output Total 200 Balance 300 720 PT 13.2 SEC (12.0-15.0) 10/23/16 08:21 INR 1.01 (0.83-1.16) 10/23/16 08:21 - Physical Exam Constitutional: not in pain, chronically ill appearing Eyes: PERRL Ears, Nose, Mouth, Throat: hearing normal Respiratory: no respiratory distress Skin: warm Musculoskeletal: other (left hand tremor) Neurologic: AAOx3 Psychiatric: interacting appropriately, flat affect ICD10 Worksheet Patient Problems: Problems Problem Status Onset Chronic Disease Mgmt/Transitional Care Acute Failure to thrive Acute HCAP (healthcare-associated pneumonia) Acute Weakness Acute Failure to thrive Acute Severe major depression Acute
[2016-10-25] MEDS: busPIRone 15 MG TAB PO SCH ×2 (09:42→21:37)
[2016-10-25] MEDS: ARIPiprazole 10 MG TAB PO SCH (09:42)
[2016-10-25] MEDS: FLUoxetine 20 MG CAP PO SCH (09:42)
[2016-10-25] MEDS: PANTOPRAZOLE SODIUM 40 MG TAB PO SCH (09:42)
[2016-10-25] MEDS: SENNOSIDES/DOCUSATE SODIUM TAB PO SCH ×2 (09:42→21:37)
[2016-10-25] MEDS: CYANO/VITAMIN B12 1000 MCG/ML VIAL IM SCH (09:42)
[2016-10-25] MEDS: PROPRANOLOL HCL 40 MG TAB PO SCH ×2 (09:43→17:59)
[2016-10-25] MEDS: ENOXAPARIN 40 MG/0.4 ML SYR SC SCH (10:14)
--- NOTE | 2016-10-25 14:40 | GCON ---
[f rep st] CONSULTATION NEUROLOGY CONSULT. DATE OF CONSULTATION: 10/25/2016 REFERRING PROVIDER: Kendra Carty. CHIEF COMPLAINT: Tremor. HISTORY OF PRESENT ILLNESS: The patient is a very pleasant 76-year-old gentleman, who has a longstanding history of cyclic severe depression, who has been on antipsychotics for 20+ years intermittently. He does not know his family history in terms of tremor. He has had failure to thrive intermittently as well. He is now here mainly for depression and possible pneumonia. Some tremor was noted on his exam, and he is on propranolol 40 mg b.i.d. for essential tremor. We are asked to evaluate this further. PAST MEDICAL HISTORY: Depression and anxiety. MEDICATIONS: See reconciliation list. ALLERGIES: No known drug allergies. SOCIAL HISTORY: Lives at home by himself. is in assisted living. FAMILY HISTORY: Diabetes. REVIEW OF SYSTEMS: A 10-point review of system was done with the patient, and only pertinent to the HPI. PHYSICAL EXAMINATION: VITAL SIGNS: Blood pressure 109/64, afebrile, 36.3 Celsius, respiratory rate 16, O2 sats 93%. GENERALLY: The patient was in no acute distress. He had a flat affect and appeared depressed. Denies suicidal ideation. CRANIAL NERVES: He has a flat facial expression, but otherwise normal 2 through 7, 11, 12 on testing. MOTOR: Patient has no focal weakness. He does have increased tone at the right wrist with some cogwheeling intermittently. The patient had some rest tremor and definite action tremor in the upper extremities. SENSORY: Normal to light touch. GAIT: He had normal stride length and some slowness in his gait that appeared antalgic. His turns were normal. Seventy total minutes on the floor today; over 50% in reviewing his previous hospital records, counseling the patient and coordination of care with the primary team IMPRESSION/PLAN: 1. Tremor. 2. Depression. 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 He may have this movement disorder as a result of medication side effects. He has a longstanding history of intermittent use of antipsychotics, which can have extrapyramidal side effects, including Parkinsonism and other types of tremors. We discussed at length. 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 At this point, considering his complex psychosocial and psychiatric history, I recommend we continue his beta-sharon as prescribed, as this has been prescribed for some years, and does not appear to exacerbate his depression. I will be happy to follow up with him as an outpatient to continue to monitor his tremor. The most pressing symptom at this point appears to be his depression. This was discussed with the hospital medicine team, and they are working with behavioral health and considering placement plans. I will look forward to taking care of the patient as an outpatient. We will sign off and follow up as needed. Thank you for this consultation. . /[id number]/MODL MTDD
[2016-10-25] MEDS: LORazepam 1 MG TAB PO PRN ×2 (15:58→21:36)
[2016-10-25] MEDS: traZODone 50 MG TAB PO SCH (21:37)
[2016-10-26] MEDS: FLUoxetine 20 MG CAP PO SCH (08:03)
[2016-10-26] MEDS: PROPRANOLOL HCL 40 MG TAB PO SCH (08:03)
[2016-10-26] MEDS: busPIRone 15 MG TAB PO SCH (08:03)
[2016-10-26] MEDS: ARIPiprazole 10 MG TAB PO SCH (08:04)
[2016-10-26] MEDS: CYANO/VITAMIN B12 1000 MCG/ML VIAL IM SCH (08:04)
[2016-10-26] MEDS: SENNOSIDES/DOCUSATE SODIUM TAB PO SCH (08:04)
[2016-10-26] MEDS: PANTOPRAZOLE SODIUM 40 MG TAB PO SCH (08:04)
[2016-10-26 08:41] VITALS: BP 108/66; PULSE 62; RESP 18; TEMP 98.6; O2SAT 93
[2016-10-26] MEDS: ENOXAPARIN 40 MG/0.4 ML SYR SC SCH (09:35)
--- NOTE | 2016-10-26 11:22 | PDIAF ---
- Diagnosis Diagnosis: weakness/depression Code Status: Full Code - Medication Management Discharge Medications: Medications to Continue on Transfer ARIPiprazole [Abilify 10 mg (*)] 10 mg PO DAILY 09/21/16 [Last Taken 10/21/16] FLUoxetine [Prozac 20 MG (*)] 80 mg PO DAILY 09/21/16 [Last Taken 10/21/16] Propranolol HCl [Inderal 40mg (*)] 40 mg PO BIDMEAL 09/21/16 [Last Taken 18:00] busPIRone [Buspar (*)] 30 mg PO BID 09/21/16 [Last Taken 10/21/16 21:00] clonazePAM [Klonopin (*)] 0.5 mg PO BID PRN 09/21/16 [Last Taken 10/22/16] Omeprazole [Prilosec 20 mg] 40 mg PO DAILY 10/22/16 [Last Taken 10/21/16] Acetaminophen [Tylenol 325mg (*)] 650 mg PO Q4HRS PRN #0 tab 10/26/16 [Last Taken Unknown] Sennosides/Docusate Sodium [Senokot-S] 1 - 2 tab PO BID #0 tab 10/26/16 [Last Taken Unknown] Discharge Medications: Refer to the Discharge Home Medication list for PRN reason. PICC Care - Routine: N/A - Orders Services needed: Registered Nurse, Physical Therapy, Occupational Therapy - Follow Up Care Current Providers and Referrals: Patient,NotPresent [Unknown] - As per Instructions Shon Gallego MD [Medical Doctor] -
--- NOTE | 2016-10-26 14:28 | GDS ---
[f rep st] DISCHARGE SUMMARY DISCHARGE DIAGNOSES: 1. Possible pneumonia. 2. Ongoing major depression. 3. Generalized weakness. 4. General fatigue. 5. Essential tremor, with gait disturbances. CONSULTATIONS: Neurology. PHYSICAL EXAMINATION: GENERAL: The patient is alert. VITAL SIGNS: Afebrile at 37. Pulse is 60. Respiratory rate is 18. Blood pressure is 108/66. He is saturating 93% on room air. I have seen and evaluated the patient on the day of discharge. HOSPITAL COURSE: The patient is a 76-year-old male who presented to the emergency room with complai nts of severe fatigue. He was evaluated and diagnosed with: 1. Possible pneumonia. He was treated with antibiotic therapy during this hospitalization. He ref used a followup chest x-ray. He is saturating appropriately on room air and required no further ant ibiotic treatment. 2. Ongoing major depression. There is a longstanding history for the patient. He did receive a co nsultation during this hospitalization from Janel Pemberton. His medications have been continued. He guzman s ECT in the past, and it was recommended that he follow up with his regular therapist in the outpat ient setting. 3. General fatigue. This was multifactorial. Laboratory evaluation has been within normal limits. He will follow with his primary care doctor. 4. Essential tremor, with gait disturbances. He did receive a consultation from Neurology during t his hospitalization. He was continued on his propranolol, and it is recommended that he follow up w ith a neurologist in the outpatient setting. Dr. Gallego is happy to see him in the outpatient setting. DISPOSITION: The patient will be discharged to [facility] for further rehabilitation and management given his increased weakness and inability to safely discharge home. There are no pending studies. DISCHARGE MEDICATIONS: Please refer to the EMR form. I have not adjusted the patient's previously prescribed home medications to the best of my knowledge. FOLLOWUP: Will be with Dr. Gallego, as well as the patient's primary care provider and his primary ther apist. I spent greater than 35 minutes in the care, coordination, and management of this patient's disposit ion. /[id number]/MODL
== END 2016-10-26 13:00 | DRG 194 ==
LOC: EDUNIT# → F3E 14:40
PROVIDERS: ADMIT Student in an Organized Health Care Education/Training Program; ATTEND Internal Medicine
DX: J18.9 Pneumonia, unspecified organism (principal); F33.9 Major depressive disorder, recurrent, unspecified; R53.1 Weakness; R53.83 Other fatigue; R62.7 Adult failure to thrive; G25.0 Essential tremor; R26.9 Unspecified abnormalities of gait and mobility
CPT/HCPCS: 84134-90; 97116-GP; 97161-GP; 97165-GO; 97530-GP; 97532-GO; 97535-GO; G8978-GP-CK; G8979-GP-CI; G8987-GO-CJ; G8988-GO-CI; J0692; J1650; J1956

== ENCOUNTER 2016-11-19 10:34 | Emergency (ER) | payer OTHER ==
--- NOTE | 2016-11-19 10:51 | CPEKG ---
Heart Rate: 85 RR Interval: 706 P-R Interval: 176 QRSD Interval: 88 QT Interval: 380 QTC Interval: 452 P [place]: 32 QRS [place]: -15 T Wave [place]: 12 EKG Severity - OTHERWISE NORMAL ECG - EKG Impression: SINUS RHYTHM EKG Impression: BORDERLINE LEFT AXIS DEVIATION Electronically Signed By: Jacques Bond 19-Nov-2016 13:09:37
[2016-11-19] MEDS ORDERED: LORazepam 2 MG/ML INJ IVP ONE (11:04)
[2016-11-19] MEDS ORDERED: NS 1,000 ML IV ONE (11:12)
[2016-11-19 11:17] LABS: % IMMATURE GRANULYOCYTES 0.3 % (0.0-1.1); ABSOLUTE IMMATURE GRANULOCYTES 0.03 10^3/uL (0.00-0.10); ADD DIFF? NO; ADD MORPH? NO; ADD SCAN? NO; ATYPICAL LYMPHOCYTE FLAG 0 (0-99); FRAGMENT RBC FLAG 0 (0-99); HEMATOCRIT 50.9 % (40.0-51.0); HEMOGLOBIN 16.8 g/dL (13.7-17.5); LEFT SHIFT FLG 0 (0-99); LIPEMIA HEMOLYSIS FLAG 80 (0-99); MEAN CELL HEMOGLOBIN 30.6 pg (27.9-34.1); MEAN CELL VOLUME 92.7 fL (81.5-99.8); MEAN PLATELET VOLUME 10.4 fL (8.7-11.7); PLATELET CLUMPS FLAG 10 (0-99); PLATELET COUNT 316 10^3/uL (150-400); RED BLOOD CELL COUNT 5.49 10^6/uL (4.40-6.38); RED CELL DISTRIBUTION WIDTH 12.7 % (11.5-15.2)
--- NOTE | 2016-11-19 11:22 | EDPHY ---
H & P Stated Complaint: SVT episode, diaphoretic Time Seen by Provider: 11/19/16 10:57 HPI/ROS: CHIEF COMPLAINT: Palpitations, lightheadedness HISTORY OF PRESENT ILLNESS: The patient presents to the ED by paramedics after he developed palpitations and lightheadedness while at the grocery store. Patient does have a history of anxiety as well as PSVT. The patient takes no regular cardiac medications by his report. The patient was noted to have an SVT by paramedics which responded to a Valsalva maneuver. The patient arrives to the emergency department in a normal sinus rhythm. He received dates his palpitations have improved. He complains only of mild anxiety at this point time. The patient denies any history of exertional chest pain or shortness of breath. The patient denies any history of coronary artery disease. The patient has required adenosine in the past for chemical cardioversion. REVIEW OF SYSTEMS: A comprehensive 10 point review of systems is otherwise negative aside from elements mentioned in the history of present illness. Source: Patient Exam Limitations: No limitations - Personal History Current Tetanus Diphtheria and Acellular Pertussis (TDAP): Yes - Medical/Surgical History Hx Asthma: No Hx Chronic Respiratory Disease: No Hx Diabetes: No Hx Cardiac Disease: Yes Hx Renal Disease: No Hx Cirrhosis: No Hx Alcoholism: No Hx HIV/AIDS: No Hx Splenectomy or Spleen Trauma: No Other PMH: htn, clean cardiac cath, depression, anxiety, SVT - Social History Smoking Status: Never smoked - Physical Exam Exam: General Appearance: Alert, no distress Eyes: Pupils equal and round no pallor or injection ENT, Mouth: Mucous membranes moist Respiratory: There are no retractions, lungs are clear to auscultation Cardiovascular: Regular rate and rhythm Gastrointestinal: Abdomen is soft and nontender, no masses, bowel sounds normal Neurological: A&O, normal motor function, normal sensory exam, normal cranial nerves Skin: Warm and dry, no rashes Musculoskeletal: Neck is supple nontender Extremities: symmetrical, full range of motion Constitutional: Initial Vital Signs Temperature (C) 36.3 C 11/19/16 10:34 Heart Rate 85 11/19/16 10:34 Respiratory Rate 22 H 11/19/16 10:34 Blood Pressure 96/73 L 11/19/16 10:34 O2 Sat (%) 93 11/19/16 10:34 O2 Delivery Mode Room Air Allergies/Adverse Reactions: No Known Allergies Allergy (Verified 04/19/16 14:01) Home Medications: Medication Instructions Recorded ARIPiprazole [Abilify 10 mg (*)] 10 mg PO DAILY 09/21/16 FLUoxetine [Prozac 20 MG (*)] 80 mg PO DAILY 09/21/16 Propranolol HCl [Inderal 40mg (*)] 40 mg PO BIDMEAL 09/21/16 busPIRone [Buspar (*)] 30 mg PO BID 09/21/16 clonazePAM [Klonopin (*)] 0.5 mg PO BID PRN 09/21/16 Omeprazole [Prilosec 20 mg] 40 mg PO DAILY 10/22/16 Acetaminophen [Tylenol 325mg (*)] 650 mg PO Q4HRS PRN #0 tab 10/26/16 Sennosides/Docusate Sodium 1 - 2 tab PO BID #0 tab 10/26/16 [Senokot-S] Medical Decision Making - Diagnostics EKG Interpretation: EKG: Complete interpretation has been separately recorded in the [email or web address] archive. Summary impression: Sinus rhythm, rate 85 ED Course/Re-evaluation: The patient presents to the ED after an episode of resolved SVT. The patient was placed on a quality assurance monitor final. His EKG demonstrates a sinus rhythm without evidence of ischemia. The patient did receive 1 mg of IV Ativan. The patient' s past medical records were reviewed. The patient reportedly does have a history of an unremarkable coronary angiogram. The patient's troponin is normal. The remainder of his laboratory studies are within normal limits. Patient was re-evaluated at 12:30 p.m.. There has been no recurrent arrhythmia in the emergency department. The patient has no significant metabolic abnormality. The patient is comfortable being discharged at this point time. He does understand return to the ED for recurrent palpitations, chest pain or other concerns. Differential Diagnosis: Differential diagnosis considered includes SVT, anxiety, metabolic abnormality, myocardial infarction - Data Points Laboratory Results: Laboratory Results 11/19/16 10:40 11/19/16 10:40 11/19/16 11/19/16 10:40 10:40 WBC 10.28 10^3/uL H 10^3/uL (3.80-9.50) RBC 5.49 10^6/uL 10^6/uL (4.40-6.38) Hgb 16.8 g/dL g/dL (13.7-17.5) Hct 50.9 % % (40.0-51.0) MCV 92.7 fL fL (81.5-99.8) MCH 30.6 pg pg (27.9-34.1) MCHC 33.0 g/dL g/dL (32.4-36.7) RDW 12.7 % % (11.5-15.2) Plt Count 316 10^3/uL 10^3/uL (150-400) MPV 10.4 fL fL (8.7-11.7) Neut % (Auto) 69.0 % % (39.3-74.2) Lymph % (Auto) 22.0 % % (15.0-45.0) [place] % (Auto) 6.2 % % (4.5-13.0) Eos % (Auto) 1.8 % % (0.6-7.6) Baso % (Auto) 0.7 % % (0.3-1.7) Nucleat RBC Rel Count 0.0 % % (0.0-0.2) Absolute Neuts (auto) 7.09 10^3/uL H 10^3/uL (1.70-6.50) Absolute Lymphs (auto) 2.26 10^3/uL 10^3/uL (1.00-3.00) Absolute Monos (auto) 0.64 10^3/uL 10^3/uL (0.30-0.80) Absolute Eos (auto) 0.19 10^3/uL 10^3/uL (0.03-0.40) Absolute Basos (auto) 0.07 10^3/uL 10^3/uL (0.02-0.10) Absolute Nucleated RBC 0.00 10^3/uL 10^3/uL (0-0.01) Immature Gran % 0.3 % % (0.0-1.1) Immature Gran # 0.03 10^3/uL 10^3/uL (0.00-0.10) Sodium 142 mEq/L mEq/L (134-144) Potassium 4.1 mEq/L mEq/L (3.5-5.2) Chloride 107 mEq/L mEq/L (97-110) Carbon Dioxide 19 mEq/l L mEq/l (22-31) Anion Gap 16 mEq/L mEq/L (8-16) BUN 17 mg/dL mg/dL (7-23) Creatinine 1.3 mg/dL mg/dL (0.7-1.3) Estimated GFR 54 Glucose 167 mg/dL H mg/dL (70-100) Calcium 8.8 mg/dL mg/dL (8.5-10.4) Troponin I < 0.012 ng/mL ng/mL (0-0.034) Medications Given: Discontinued Medications Sodium Chloride (Ns) 1,000 mls @ 0 mls/hr IV ONCE ONE PRN Reason: Wide Open Stop: 11/19/16 11:13 Last Admin: 11/19/16 11:14 Dose: 1,000 mls Lorazepam (Ativan Injection) 1 mg IVP EDNOW ONE Stop: 11/19/16 11:05 Last Admin: 11/19/16 11:14 Dose: 1 mg Departure - Departure Disposition: Home, Routine, Self-Care Clinical Impression: Supraventricular tachycardia Condition: Good Instructions: Supraventricular Tachycardia (ED) Additional Instructions: 1. Please return to the emergency department for any recurrent symptoms or other concerns. 2. Please follow up with your regular physician as scheduled. Referrals: Megan Pablo DO [Primary Care Provider] - As per Instructions
[2016-11-19 11:24] LABS: ANION GAP 16 mEq/L (8-16); CALCIUM 8.8 mg/dL (8.5-10.4); CARBON DIOXIDE 19 mEq/l (22-31); CHLORIDE 107 mEq/L (97-110); CREATININE 1.3 mg/dL (0.7-1.3); GLOMERULAR FILTRATION RATE 54; GLUCOSE 167 mg/dL (70-100); POTASSIUM 4.1 mEq/L (3.5-5.2); SODIUM 142 mEq/L (134-144)
[2016-11-19 11:35] LABS: TROPONIN I < 0.012 ng/mL (0-0.034)
[2016-11-19 13:06] VITALS: BP 105/74; PULSE 68; RESP 14; TEMP 98.2; O2SAT 90
== END 2016-11-19 13:22 | disposition home or self-care (01) ==
LOC: EDUNIT#
DX: I47.1 Supraventricular tachycardia (principal); I10 Essential (primary) hypertension
CPT/HCPCS: 93005; 96361; 96374; 99284; J2060

== ENCOUNTER 2016-12-09 16:26 | Emergency (ER) | payer OTHER ==
[2016-12-09 16:38] VITALS: RESP 16
--- NOTE | 2016-12-09 17:26 | EDPHY ---
H & P Time Seen by Provider: 12/09/16 17:25 HPI/ROS: Chief complaint. Abdominal pain HPI. 76-year-old male presents emergency department with complaint of abdominal pain for 2 days. He describes as right lower quadrant and sharp. No nausea or vomiting, diarrhea, urinary symptoms, fever. It is not worse with movement or eating. He feels that it is due to anxiety. He wants anxiety medication only. ROS Constitutional. no fever/chills, no weakness Eyes. no problems with vision ENT. no sore throat, no nasal drainage Cardiovascular. no chest pain Respiratory. no shortness of breath, no cough Abdominal. Right lower quadrant abdominal pain . no problems urinating MS. no calf pain/swelling, no neck/back pain, no joint pain Skin. no rash Lymph. no swollen glands Neuro. no headache, no dizziness, no difficulty walking or with speech Past Medical/Surgical History: Past medical history is significant for hypertension, clean cardiac catheterization, depression, anxiety, SVT Social History: , nonsmoker, no alcohol Smoking Status: Never smoked Physical Exam: General Appearance: Alert well-developed male no distress vital signs stable Eyes: Pupils equal and round no pallor or injection. ENT, Mouth: Mucous membranes are moist. Respiratory: There are no retractions, lungs are clear to auscultation. Cardiovascular: Regular rate and rhythm. Gastrointestinal: Abdomen is soft and nontender, no masses, bowel sounds normal. No pain with deep palpation right side of abdomen. Neurological: Awake and alert, sensory and motor exams grossly normal. Skin: Warm and dry, no rashes. Musculoskeletal: Neck is supple nontender. Extremities symmetrical, full range of motion. Psychiatric: Patient is oriented X 3, there is no agitation. Constitutional: Initial Vital Signs Temperature (C) 37 C 12/09/16 16:36 Heart Rate 83 12/09/16 16:36 Respiratory Rate 16 12/09/16 16:36 Blood Pressure 122/80 H 12/09/16 16:36 O2 Sat (%) 93 12/09/16 16:36 O2 Delivery Mode Room Air Allergies/Adverse Reactions: No Known Allergies Allergy (Verified 04/19/16 14:01) Home Medications: Medication Instructions Recorded ARIPiprazole [Abilify 10 mg (*)] 10 mg PO DAILY 09/21/16 FLUoxetine [Prozac 20 MG (*)] 80 mg PO DAILY 09/21/16 Propranolol HCl [Inderal 40mg (*)] 40 mg PO BIDMEAL 09/21/16 busPIRone [Buspar (*)] 30 mg PO BID 09/21/16 clonazePAM [Klonopin (*)] 0.5 mg PO BID PRN 09/21/16 Omeprazole [Prilosec 20 mg] 40 mg PO DAILY 10/22/16 Acetaminophen [Tylenol 325mg (*)] 650 mg PO Q4HRS PRN #0 tab 10/26/16 Sennosides/Docusate Sodium 1 - 2 tab PO BID #0 tab 10/26/16 [Senokot-S] Medical Decision Making Procedures: Ativan 1 mg orally ED Course/Re-evaluation: Patient refuses workup. He feels that his abdominal pain is due to anxiety. I discussed with him that I thought it is in his best interest to further evaluate his abdominal pain with blood work, urinalysis, CT scan abdomen for concerns of appendicitis and diverticulitis as well as urinary tract infection. He only wants medication for his anxiety and he says he really does not have abdominal pain and he is here because of anxiety. I discussed risks and benefits of this intact including the fact that he could have appendicitis and could rupture. Achy could get much sicker or worse. He may have a finding in his abdomen that require surgery. He expresses understanding and agreement but does not want any further workup other than Ativan We discussed criteria for return and importance of follow-up and further evaluation. He expresses understanding and agreement Differential Diagnosis: I have considered appendicitis, diverticulitis, urinary tract infection Departure - Departure Disposition: Home, Routine, Self-Care Clinical Impression: Anxiety, Abdominal pain Condition: Fair Instructions: Anxiety (ED), Abdominal Pain (ED) Additional Instructions: Continue regular medications. Return for worsening abdominal pain, fever, vomiting. Recheck tomorrow if not back to normal and for any continuing symptoms Referrals: Megan Pablo, [Primary Care Provider] - 1 day, if not improved
[2016-12-09] MEDS ORDERED: LORazepam 1 MG TAB PO ONE ×2 (18:01→20:27)
[2016-12-09 19:49] LABS: % IMMATURE GRANULYOCYTES 0.3 % (0.0-1.1); ABSOLUTE IMMATURE GRANULOCYTES 0.02 10^3/uL (0.00-0.10); ADD DIFF? NO; ADD MORPH? NO; ADD SCAN? NO; ATYPICAL LYMPHOCYTE FLAG 10 (0-99); FRAGMENT RBC FLAG 0 (0-99); HEMATOCRIT 45.4 % (40.0-51.0); HEMOGLOBIN 15.2 g/dL (13.7-17.5); LEFT SHIFT FLG 0 (0-99); LIPEMIA HEMOLYSIS FLAG 80 (0-99); MEAN CELL HEMOGLOBIN 31.5 pg (27.9-34.1); MEAN CELL HEMOGLOBIN CONCENTR. 33.5 g/dL (32.4-36.7); MEAN PLATELET VOLUME 9.9 fL (8.7-11.7); PLATELET CLUMPS FLAG 0 (0-99); PLATELET COUNT 250 10^3/uL (150-400); RED BLOOD CELL COUNT 4.83 10^6/uL (4.40-6.38); RED CELL DISTRIBUTION WIDTH 12.7 % (11.5-15.2)
[2016-12-09 20:03] LABS: ANION GAP 8 mEq/L (8-16); CARBON DIOXIDE 25 mEq/l (22-31); CHLORIDE 105 mEq/L (97-110); CREATININE 1.2 mg/dL (0.7-1.3); ETHANOL SERUM < 10 mg/dL (0-10); GLOMERULAR FILTRATION RATE 59; GLUCOSE 91 mg/dL (70-100); POTASSIUM 4.2 mEq/L (3.5-5.2); SODIUM 138 mEq/L (134-144)
[2016-12-09] MEDS ORDERED: LORazepam 1 MG TAB ONE (20:26)
[2016-12-09 22:39] VITALS: TEMP 97.9
[2016-12-09 23:51] VITALS: BP 128/74; PULSE 71; O2SAT 94
== END 2016-12-10 00:09 | disposition home or self-care (01) ==
DX: R10.31 Right lower quadrant pain (principal); F41.9 Anxiety disorder, unspecified; I10 Essential (primary) hypertension
CPT/HCPCS: 80305; G0480

== ENCOUNTER 2017-01-03 12:26 | Emergency (ER) | payer OTHER ==
[2017-01-03] MEDS ORDERED: LORazepam 1 MG TAB ONE (12:37)
--- NOTE | 2017-01-03 12:38 | EDPHY ---
H & P Time Seen by Provider: 01/03/17 12:36 HPI/ROS: HPI CHIEF COMPLAINT: Anxiety, depression, M1 hold HISTORY OF PRESENT ILLNESS: This patient is a 76-year-old male suffers from depression, anxiety, off his medications for 1 month. Presents emergency room by EMS on M1 held from the crisis Center. States he has been off his medications for over a month. Presents emergency room stating is very depressed with anxiety. He denies suicidal ideation or plan. Past Medical History: Severe depression, anxiety Past Surgical History: Denies Social History: Denies daily use of drugs alcohol tobacco products, lives independently, alone Family History: Noncontributory ROS REVIEW OF SYSTEMS: A comprehensive 10 point review of systems is otherwise negative aside from elements mentioned in the history of present illness. Exam Constitutional disheveled, triage nursing summary reviewed, vital signs reviewed, awake/alert. Eyes normal conjunctivae and sclera, EOMI, PERRLA. HENT normal inspection, atraumatic, moist mucus membranes, no epistaxis, neck supple/ no meningismus, no raccoon eyes. Respiratory clear to auscultation bilaterally, normal breath sounds, no respiratory distress, no wheezing. Cardiovascular rate normal, regular rhythm, no murmur, no edema, distal pulses normal. Gastrointestinal soft, non-tender, no rebound, no guarding, normal bowel sounds, no distension, no pulsatile mass. Genitourinary no CVA tenderness. Musculoskeletal no midline vertebral tenderness, full range of motion, no calf swelling, no tenderness of extremities, no meningismus, good pulses, neurovascularly intact. Skin pink, warm, & dry, no rash, skin atraumatic. Neurologic awake, alert and oriented x 3, AAOx3, moves all 4 extremities equally, motor intact, sensory intact, CN II-XII intact, normal cerebellar, normal vision, normal speech. Psychiatric flat affect Heme/Lymph/Immune no lymphadenopathy. Differential Diagnosis: Includes but is not limited to in a particular order severe depression, major depression disorder, mood disorder, anxiety disorder Medical Decision Making: Plan for this patient blood draw for medical clearance. 1 mg p.o. Ativan. Will need mental health evaluation. He is on M1 hold. Re-evaluation: 1349: JULIO C with EPS. Patient medically cleared. Patient need inpatient psychiatric hospitalization at this time this patient is medically cleared. 2012: This patient has been accepted at [facility] for were. Appropriate transfer be set up. EMTALA form filled out. Source: Patient, EMS - Medical/Surgical History Hx Asthma: No Hx Chronic Respiratory Disease: No Hx Diabetes: No Hx Cardiac Disease: Yes Hx Renal Disease: No Hx Cirrhosis: No Hx Alcoholism: No Hx HIV/AIDS: No Hx Splenectomy or Spleen Trauma: No Other PMH: htn, clean cardiac cath, depression, anxiety, SVT - Social History Smoking Status: Never smoked Constitutional: Initial Vital Signs Temperature (C) 36.5 C 01/03/17 12:26 Heart Rate 68 01/03/17 12:26 Respiratory Rate 16 01/03/17 12:26 Blood Pressure 129/75 H 01/03/17 12:26 O2 Sat (%) 94 01/03/17 12:26 O2 Delivery Mode Room Air Allergies/Adverse Reactions: No Known Allergies Allergy (Verified 04/19/16 14:01) Home Medications: Medication Instructions Recorded ARIPiprazole [Abilify 10 mg (*)] 10 mg PO DAILY 09/21/16 FLUoxetine [Prozac 20 MG (*)] 80 mg PO DAILY 09/21/16 Propranolol HCl [Inderal 40mg (*)] 40 mg PO BIDMEAL 09/21/16 busPIRone [Buspar (*)] 30 mg PO BID 09/21/16 clonazePAM [Klonopin (*)] 0.5 mg PO BID PRN 09/21/16 Omeprazole [Prilosec 20 mg] 40 mg PO DAILY 10/22/16 Acetaminophen [Tylenol 325mg (*)] 650 mg PO Q4HRS PRN #0 tab 10/26/16 Sennosides/Docusate Sodium 1 - 2 tab PO BID #0 tab 10/26/16 [Senokot-S] Medical Decision Making - Data Points Laboratory Results: Laboratory Results 01/03/17 12:45 01/03/17 12:45 01/03/17 01/03/17 01/03/17 12:45 12:45 12:45 WBC 9.75 10^3/uL H 10^3/uL (3.80-9.50) RBC 4.88 10^6/uL 10^6/uL (4.40-6.38) Hgb 15.3 g/dL g/dL (13.7-17.5) Hct 45.5 % % (40.0-51.0) MCV 93.2 fL fL (81.5-99.8) MCH 31.4 pg pg (27.9-34.1) MCHC 33.6 g/dL g/dL (32.4-36.7) RDW 13.2 % % (11.5-15.2) Plt Count 282 10^3/uL 10^3/uL (150-400) MPV 9.6 fL fL (8.7-11.7) Neut % (Auto) 73.3 % % (39.3-74.2) Lymph % (Auto) 17.3 % % (15.0-45.0) [place] % (Auto) 8.1 % % (4.5-13.0) Eos % (Auto) 0.6 % % (0.6-7.6) Baso % (Auto) 0.5 % % (0.3-1.7) Nucleat RBC Rel Count 0.0 % % (0.0-0.2) Absolute Neuts (auto) 7.14 10^3/uL H 10^3/uL (1.70-6.50) Absolute Lymphs (auto) 1.69 10^3/uL 10^3/uL (1.00-3.00) Absolute Monos (auto) 0.79 10^3/uL 10^3/uL (0.30-0.80) Absolute Eos (auto) 0.06 10^3/uL 10^3/uL (0.03-0.40) Absolute Basos (auto) 0.05 10^3/uL 10^3/uL (0.02-0.10) Absolute Nucleated RBC 0.00 10^3/uL 10^3/uL (0-0.01) Immature Gran % 0.2 % % (0.0-1.1) Immature Gran # 0.02 10^3/uL 10^3/uL (0.00-0.10) Sodium 137 mEq/L mEq/L (134-144) Potassium 4.3 mEq/L mEq/L (3.5-5.2) Chloride 105 mEq/L mEq/L (97-110) Carbon Dioxide 21 mEq/l L mEq/l (22-31) Anion Gap 11 mEq/L mEq/L (8-16) BUN 24 mg/dL H mg/dL (7-23) Creatinine 1.2 mg/dL mg/dL (0.7-1.3) Estimated GFR 59 Glucose 105 mg/dL H mg/dL (70-100) Calcium 9.4 mg/dL mg/dL (8.5-10.4) TSH 2.500 uIU/mL uIU/mL (0.465-4.680) Salicylates < 1.0 mg/dL L mg/dL (2.0-20.0) Urine Opiates Screen Acetaminophen < 10 mcg/mL L mcg/mL (10.0-30.0) Urine Barbiturates Ur Phencyclidine Scrn Ur Amphetamine Screen U Benzodiazepines Scrn Urine Cocaine Screen U Marijuana (THC) Screen Ethyl Alcohol < 10 mg/dL mg/dL (0-10) 01/03/17 09:36 WBC RBC Hgb Hct MCV MCH MCHC RDW Plt Count MPV Neut % (Auto) Lymph % (Auto) [place] % (Auto) Eos % (Auto) Baso % (Auto) Nucleat RBC Rel Count Absolute Neuts (auto) Absolute Lymphs (auto) Absolute Monos (auto) Absolute Eos (auto) Absolute Basos (auto) Absolute Nucleated RBC Immature Gran % Immature Gran # Sodium Potassium Chloride Carbon Dioxide Anion Gap BUN Creatinine Estimated GFR Glucose Calcium TSH Salicylates Urine Opiates Screen NEGATIVE (NEGATIVE) Acetaminophen Urine Barbiturates NEGATIVE (NEGATIVE) Ur Phencyclidine Scrn NEGATIVE (NEGATIVE) Ur Amphetamine Screen NEGATIVE (NEGATIVE) U Benzodiazepines Scrn NEGATIVE (NEGATIVE) Urine Cocaine Screen NEGATIVE (NEGATIVE) U Marijuana (THC) Screen NEGATIVE (NEGATIVE) Ethyl Alcohol Medications Given: Discontinued Medications Lorazepam (Ativan) 1 mg PO EDNOW ONE Stop: 01/03/17 12:50 Last Admin: 01/03/17 12:49 Dose: 1 mg Lorazepam (Ativan) 1 mg PO EDNOW ONE Stop: 01/03/17 13:31 Last Admin: 01/03/17 13:30 Dose: 1 mg Departure - Departure Disposition: Other Psych, Not Oscar Clinical Impression: Depression Qualifiers: Depression Type: major depressive disorder Major depression recurrence: single episode Active/Remission status: currently active Major depression episode severity: mild Qualified Code(s): F32.0 - Major depressive disorder, single episode, mild Condition: Fair Referrals: Patient,NotPresent [Primary Care Provider] - As per Instructions
[2017-01-03] MEDS ORDERED: LORazepam 1 MG TAB PO ONE ×2 (12:49→13:30)
[2017-01-03 12:56] VITALS: RESP 16
[2017-01-03 12:56] LABS: % IMMATURE GRANULYOCYTES 0.2 % (0.0-1.1); ABSOLUTE IMMATURE GRANULOCYTES 0.02 10^3/uL (0.00-0.10); ADD DIFF? NO; ADD MORPH? NO; ADD SCAN? NO; ATYPICAL LYMPHOCYTE FLAG 10 (0-99); FRAGMENT RBC FLAG 0 (0-99); HEMATOCRIT 45.5 % (40.0-51.0); HEMOGLOBIN 15.3 g/dL (13.7-17.5); LEFT SHIFT FLG 0 (0-99); LIPEMIA HEMOLYSIS FLAG 80 (0-99); MEAN CELL HEMOGLOBIN 31.4 pg (27.9-34.1); MEAN CELL HEMOGLOBIN CONCENTR. 33.6 g/dL (32.4-36.7); MEAN CELL VOLUME 93.2 fL (81.5-99.8); MEAN PLATELET VOLUME 9.6 fL (8.7-11.7); PLATELET CLUMPS FLAG 0 (0-99); PLATELET COUNT 282 10^3/uL (150-400); RED BLOOD CELL COUNT 4.88 10^6/uL (4.40-6.38); RED CELL DISTRIBUTION WIDTH 13.2 % (11.5-15.2)
[2017-01-03 13:10] LABS: ANION GAP 11 mEq/L (8-16); CALCIUM 9.4 mg/dL (8.5-10.4); CARBON DIOXIDE 21 mEq/l (22-31); CHLORIDE 105 mEq/L (97-110); CREATININE 1.2 mg/dL (0.7-1.3); ETHANOL SERUM < 10 mg/dL (0-10); GLOMERULAR FILTRATION RATE 59; GLUCOSE 105 mg/dL (70-100); POTASSIUM 4.3 mEq/L (3.5-5.2); SALICYLATE < 1.0 mg/dL (2.0-20.0); SODIUM 137 mEq/L (134-144)
[2017-01-03 16:44] VITALS: TEMP 98.1
[2017-01-03 21:47] VITALS: BP 117/61; PULSE 75; O2SAT 94
== END 2017-01-03 21:44 ==
LOC: EDUNIT#
DX: F32.0 Major depressive disorder, single episode, mild (principal); I10 Essential (primary) hypertension
CPT/HCPCS: 80305; G0480

== ENCOUNTER 2017-02-27 12:50 | Emergency (ER) | payer OTHER ==
--- NOTE | 2017-02-27 13:00 | CPEKG ---
Heart Rate: 86 RR Interval: 698 P-R Interval: 176 QRSD Interval: 82 QT Interval: 376 QTC Interval: 450 P [place]: 55 QRS [place]: -11 T Wave [place]: 17 EKG Severity - NORMAL ECG - EKG Impression: SINUS RHYTHM Electronically Signed By: Clifford Morgan 27-Feb-2017 13:12:48
--- NOTE | 2017-02-27 13:10 | EDPHY ---
H & P Time Seen by Provider: 02/27/17 13:01 HPI/ROS: CHIEF COMPLAINT: SVT HISTORY OF PRESENT ILLNESS: The patient is a 76-year-old man with a history of paroxysmal SVT. He was in the grocery store this morning when fire the fighters noticed he did not look very well. They placed him on an EKG and noticed that he was in SVT. This resolved spontaneously but he was brought to the emergency department. He denies having any chest pain or shortness of breath. He complains of penile gland irritation because he states he is not changed his underwear in several days and has mild incontinence. He has not had a fever. No vomiting. No nausea or abdominal pain. REVIEW OF SYSTEMS: Constitutional: denies: chills, fever, recent illness, recent injury EENTM: denies: blurred vision, double vision, nose congestion Respiratory: denies: cough, shortness of breath Cardiac: See HPI Gastrointestinal/Abdominal: denies: abdominal pain, diarrhea, nausea, vomiting, blood streaked stools Genitourinary: See HPI Musculoskeletal: denies: joint pain, muscle pain Skin: denies: lesions, rash, jaundice, bruising Neurological: denies: headache, numbness, paresthesia, tingling, dizziness, weakness Hematologic/Lymphatic: denies: blood clots, easy bleeding, easy bruising Immunologic/allergic: denies: HIV/AIDS, transplant EXAM: GENERAL: Well-appearing, well-nourished and in no acute distress. HEAD: Atraumatic, normocephalic. EYES: Pupils equal round and reactive to light, extraocular movements intact, sclera anicteric, conjunctiva are normal. ENT: TMs normal, nares patent, oropharynx clear without exudates. Moist mucous membranes. NECK: Normal range of motion, supple without lymphadenopathy or JVD. LUNGS: Breath sounds clear to auscultation bilaterally and equal. No wheezes rales or rhonchi. HEART: Regular rate and rhythm without murmurs, rubs or gallops. ABDOMEN: Soft, nontender, normoactive bowel sounds. No guarding, no rebound. No masses appreciated. exam: Patient has mild erythema to the tip of his glans of his penis. No discharge. BACK: No CVA tenderness, no spinal tenderness, step-offs or deformities EXTREMITIES: Normal range of motion, no pitting or edema. No clubbing or cyanosis. NEUROLOGICAL: Cranial nerves II through XII grossly intact. Normal speech, normal gait. 5/5 strength, normal movement in all extremities, normal sensation PSYCH: Normal mood, normal affect. SKIN: Warm, dry, normal turgor, no visible rashes or lesions. Source: Patient Exam Limitations: No limitations - Medical/Surgical History Hx Asthma: No Hx Chronic Respiratory Disease: No Hx Diabetes: No Hx Cardiac Disease: Yes Hx Renal Disease: No Hx Cirrhosis: No Hx Alcoholism: No Hx HIV/AIDS: No Hx Splenectomy or Spleen Trauma: No Other PMH: htn, clean cardiac cath, depression, anxiety, SVT - Family History Significant Family History: No pertinent family hx - Social History Smoking Status: Never smoked Alcohol Use: Sober Drug Use: None Constitutional: Initial Vital Signs Temperature (C) 36.7 C 02/27/17 13:20 Heart Rate 85 02/27/17 13:20 Respiratory Rate 16 02/27/17 13:20 Blood Pressure 120/77 02/27/17 13:20 O2 Sat (%) 98 02/27/17 13:20 O2 Delivery Mode Room Air O2 (L/minute) 4 Allergies/Adverse Reactions: No Known Allergies Allergy (Verified 04/19/16 14:01) Home Medications: Medication Instructions Recorded ARIPiprazole [Abilify 10 mg (*)] 10 mg PO DAILY 09/21/16 FLUoxetine [Prozac 20 MG (*)] 80 mg PO DAILY 09/21/16 Propranolol HCl [Inderal 40mg (*)] 40 mg PO BIDMEAL 09/21/16 busPIRone [Buspar (*)] 30 mg PO BID 09/21/16 clonazePAM [Klonopin (*)] 0.5 mg PO BID PRN 09/21/16 Omeprazole [Prilosec 20 mg] 40 mg PO DAILY 10/22/16 Acetaminophen [Tylenol 325mg (*)] 650 mg PO Q4HRS PRN #0 tab 10/26/16 Sennosides/Docusate Sodium 1 - 2 tab PO BID #0 tab 10/26/16 [Senokot-S] Medical Decision Making - Diagnostics EKG Interpretation: An EKG obtained and was read and documented in trace view. Please see trace view for full reading and report. Sinus rhythm, no acute ischemic changes ED Course/Re-evaluation: The patient remains asymptomatic. I suggested creams and better hygiene with his underwear. He understands and agrees with this plan. He is eager to go home and declines further workup or testing at this time. He will follow up with his running rigger concerning medications to prevent SVT. In the past he has been resistant to taking them. Differential Diagnosis: Partial list of the Differential diagnosis considered include but were not limited to; urinary tract infection, a contact dermatitis, SVT and although unlikely based on the history and physical exam, I also considered acute coronary disease, PE, pneumothorax. I discussed these differential diagnoses and the plan with the patient as well as the usual and expected course. The patient understands that the diagnosis is provisional and that in medicine we are not always correct and that further workup is often warranted. Usual and customary warnings were given. All of the patient's questions were answered. The patient was instructed to return to the emergency department should the symptoms at all worsen or return, otherwise to followup with the physician as we discussed. - Data Points Laboratory Results: Laboratory Results 02/27/17 Unknown 02/27/17 Unknown 02/27/17 02/27/17 02/27/17 Unknown Unknown 14:34 WBC 8.91 10^3/uL 10^3/uL (3.80-9.50) RBC 5.24 10^6/uL 10^6/uL (4.40-6.38) Hgb 16.4 g/dL g/dL (13.7-17.5) Hct 49.9 % % (40.0-51.0) MCV 95.2 fL fL (81.5-99.8) MCH 31.3 pg pg (27.9-34.1) MCHC 32.9 g/dL g/dL (32.4-36.7) RDW 12.9 % % (11.5-15.2) Plt Count 244 10^3/uL 10^3/uL (150-400) MPV 11.1 fL fL (8.7-11.7) Neut % (Auto) 70.7 % % (39.3-74.2) Lymph % (Auto) 21.7 % % (15.0-45.0) [place] % (Auto) 6.2 % % (4.5-13.0) Eos % (Auto) 0.4 % L % (0.6-7.6) Baso % (Auto) 0.7 % % (0.3-1.7) Nucleat RBC Rel Count 0.0 % % (0.0-0.2) Absolute Neuts (auto) 6.30 10^3/uL 10^3/uL (1.70-6.50) Absolute Lymphs (auto) 1.93 10^3/uL 10^3/uL (1.00-3.00) Absolute Monos (auto) 0.55 10^3/uL 10^3/uL (0.30-0.80) Absolute Eos (auto) 0.04 10^3/uL 10^3/uL (0.03-0.40) Absolute Basos (auto) 0.06 10^3/uL 10^3/uL (0.02-0.10) Absolute Nucleated RBC 0.00 10^3/uL 10^3/uL (0-0.01) Immature Gran % 0.3 % % (0.0-1.1) Immature Gran # 0.03 10^3/uL 10^3/uL (0.00-0.10) Sodium 138 mEq/L mEq/L (134-144) Potassium 4.2 mEq/L mEq/L (3.5-5.2) Chloride 104 mEq/L mEq/L (97-110) Carbon Dioxide 21 mEq/l L mEq/l (22-31) Anion Gap 13 mEq/L mEq/L (8-16) BUN 23 mg/dL mg/dL (7-23) Creatinine 1.3 mg/dL mg/dL (0.7-1.3) Estimated GFR 54 Glucose 141 mg/dL H mg/dL (70-100) Calcium 9.3 mg/dL mg/dL (8.5-10.4) Troponin I < 0.012 ng/mL ng/mL (0.000-0.034) Urine Color YELLOW Urine Appearance HAZY Urine pH 5.0 (5.0-7.5) Ur Specific [place] 1.025 (1.002-1.030) Urine Protein NEGATIVE (NEGATIVE) Urine Ketones TRACE H (NEGATIVE) Urine Blood 1+ H (NEGATIVE) Urine Nitrate NEGATIVE (NEGATIVE) Urine Bilirubin NEGATIVE (NEGATIVE) Urine Urobilinogen NEGATIVE EU EU (0.2-1.0) Ur Leukocyte Esterase NEGATIVE (NEGATIVE) Urine RBC 5-10 /hpf H /hpf (0-3) Urine WBC 1-3 /hpf /hpf (0-3) Ur Epithelial Cells NONE SEEN /lpf /lpf (NONE-1+) Urine Mucus TRACE /lpf /lpf (NONE-1+) Urine Glucose NEGATIVE (NEGATIVE) Departure - Departure Disposition: Home, Routine, Self-Care Clinical Impression: Supraventricular tachycardia, Dermatitis Condition: Fair Instructions: Supraventricular Tachycardia (ED), Dermatitis (ED) Additional Instructions: Case Management: You have an appointment tomorrow with your Primary Care Doctor: Megan Pablo at [facility] @ 11:[address] [address] Referrals: Megan Pablo DO [Primary Care Provider] - As per Instructions
[2017-02-27 13:15] LABS: % IMMATURE GRANULYOCYTES 0.3 % (0.0-1.1); ABSOLUTE IMMATURE GRANULOCYTES 0.03 10^3/uL (0.00-0.10); ADD DIFF? NO; ADD MORPH? NO; ADD SCAN? NO; ATYPICAL LYMPHOCYTE FLAG 0 (0-99); FRAGMENT RBC FLAG 0 (0-99); HEMATOCRIT 49.9 % (40.0-51.0); HEMOGLOBIN 16.4 g/dL (13.7-17.5); LEFT SHIFT FLG 0 (0-99); LIPEMIA HEMOLYSIS FLAG 80 (0-99); MEAN CELL HEMOGLOBIN 31.3 pg (27.9-34.1); MEAN CELL HEMOGLOBIN CONCENTR. 32.9 g/dL (32.4-36.7); MEAN CELL VOLUME 95.2 fL (81.5-99.8); MEAN PLATELET VOLUME 11.1 fL (8.7-11.7); PLATELET CLUMPS FLAG 0 (0-99); PLATELET COUNT 244 10^3/uL (150-400); RED BLOOD CELL COUNT 5.24 10^6/uL (4.40-6.38); RED CELL DISTRIBUTION WIDTH 12.9 % (11.5-15.2)
[2017-02-27 13:21] VITALS: RESP 16
[2017-02-27 13:24] LABS: ANION GAP 13 mEq/L (8-16); CALCIUM 9.3 mg/dL (8.5-10.4); CARBON DIOXIDE 21 mEq/l (22-31); CHLORIDE 104 mEq/L (97-110); CREATININE 1.3 mg/dL (0.7-1.3); GLOMERULAR FILTRATION RATE 54; GLUCOSE 141 mg/dL (70-100); POTASSIUM 4.2 mEq/L (3.5-5.2); SODIUM 138 mEq/L (134-144)
[2017-02-27 13:33] LABS: TROPONIN I < 0.012 ng/mL (0.000-0.034)
[2017-02-27 14:48] LABS: COLOR YELLOW; LEUKOCYTE ESTERASE,URINE NEGATIVE (NEGATIVE); NITRITE,URINE NEGATIVE (NEGATIVE)
[2017-02-27 14:54] LABS: MUCUS TRACE /lpf (NONE-1+)
[2017-02-27 15:37] VITALS: BP 105/66; PULSE 83; TEMP 97.7; O2SAT 94
== END 2017-02-27 15:36 | disposition home or self-care (01) ==
LOC: EDUNIT#
DX: I47.1 Supraventricular tachycardia (principal); L30.9 Dermatitis, unspecified; I10 Essential (primary) hypertension

== ENCOUNTER 2017-02-28 16:19 | Emergency (ER) | payer OTHER ==
--- NOTE | 2017-02-28 16:38 | EDPHY ---
H & P Stated Complaint: pt here for depression/denies SI Source: Patient Exam Limitations: No limitations - Personal History Current Tetanus/Diphtheria Vaccine: Yes - Medical/Surgical History Hx Asthma: No Hx Chronic Respiratory Disease: No Hx Diabetes: No Hx Cardiac Disease: Yes Hx Renal Disease: No Hx Cirrhosis: No Hx Alcoholism: No Hx HIV/AIDS: No Hx Splenectomy or Spleen Trauma: No Other PMH: htn, clean cardiac cath, depression, anxiety, SVT - Social History Smoking Status: Never smoked Time Seen by Provider: 02/28/17 16:26 HPI/ROS: CHIEF COMPLAINT: Grave disability HISTORY OF PRESENT ILLNESS: The patient is to the ED on an M1 psychiatric hold with grave disability. The patient has a history of depression. He apparently has been living in a disheveled apartment, not eating and not leaving his apartment. The patient reports he has been depressed. The patient denies any is suicide attempt or ingestion. The patient reports he has not taken medications for depression for several months. The patient states that he feels that he does not need to be hospitalized. The patient denies any acute medical complaints. REVIEW OF SYSTEMS: A comprehensive 10 point review of systems is otherwise negative aside from elements mentioned in the history of present illness. (Jacques Bond) - Physical Exam Exam: General Appearance: Elderly male, no acute distress Eyes: Pupils equal and round no pallor or injection ENT, Mouth: Mucous membranes moist Respiratory: There are no retractions, lungs are clear to auscultation Cardiovascular: Regular rate and rhythm Gastrointestinal: Abdomen is soft and nontender, no masses, bowel sounds normal Neurological: A&O, normal motor function, normal sensory exam, normal cranial nerves Skin: Warm and dry, no rashes Musculoskeletal: Neck is supple nontender Extremities: symmetrical, full range of motion Psychiatric: Endorses depression, thought process is linear and thought content is normal. The patient is cooperative and insightful. Denies suicidal or homicidal ideation (Jacques Bond) Constitutional: Initial Vital Signs Temperature (C) 36.4 C 02/28/17 16:20 Heart Rate 88 02/28/17 16:20 Respiratory Rate 16 02/28/17 16:20 Blood Pressure 99/81 H 02/28/17 16:20 O2 Sat (%) 94 02/28/17 16:20 O2 Delivery Mode Room Air Allergies/Adverse Reactions: No Known Allergies Allergy (Verified 02/28/17 16:20) Home Medications: Medication Instructions Recorded ARIPiprazole [Abilify 10 mg (*)] 10 mg PO DAILY 09/21/16 FLUoxetine [Prozac 20 MG (*)] 80 mg PO DAILY 09/21/16 Propranolol HCl [Inderal 40mg (*)] 40 mg PO BIDMEAL 09/21/16 busPIRone [Buspar (*)] 30 mg PO BID 09/21/16 clonazePAM [Klonopin (*)] 0.5 mg PO BID PRN 09/21/16 Omeprazole [Prilosec 20 mg] 40 mg PO DAILY 10/22/16 Acetaminophen [Tylenol 325mg (*)] 650 mg PO Q4HRS PRN #0 tab 10/26/16 Sennosides/Docusate Sodium 1 - 2 tab PO BID #0 tab 10/26/16 [Senokot-S] Medical Decision Making ED Course/Re-evaluation: I reviewed the patient's past medical records. I discussed his case with his regular psychiatric team at [facility]. They do feel the patient is gravely disabled based upon the state of his apartment. The patient has been placed on an M1 psychiatric hold. They would like the patient to be placed for psychiatric stabilization. The patient is amenable to this plan. The patient has remained stable throughout his stay in the emergency department. He was medically cleared by myself. Psychiatric placement is pending as of 9:00 p.m.. The patient will be turned over to Dr. Pam Pina at 10pm pending psychiatric placement. (Jacques Bond) 7:00 a.m.- The patient has been stable throughout my shift. He is awaiting placement currently. The case will be signed out to the oncoming provider Dr. Quiroga. (Pam Pina) 7:50 a.m.. Patient is stable. Eating breakfast. Awaiting placement 10:10 a.m. patient has been accepted at [facility]. Appropriate paperwork has been filled out and transport are arranged (Rakesh Quiroga) Differential Diagnosis: Differential diagnosis considered includes grave disability, depression, suicidal ideation, homicidal ideation, psychosis (Jacques Bond) - Data Points Laboratory Results: Laboratory Results 02/28/17 16:50 02/28/17 16:50 Medications Given: Discontinued Medications Sodium Chloride (Ns) 1,000 mls @ 0 mls/hr IV EDNOW ONE; Wide Open PRN Reason: Protocol Stop: 02/28/17 17:26 Last Admin: 02/28/17 17:33 Dose: 1,000 mls Departure - Departure Disposition: Other Psych, Not Oscar Clinical Impression: Gravely disabled Depression Qualifiers: Depression Type: major depressive disorder Major depression recurrence: recurrent Active/Remission status: currently active Major depression episode severity: severe Psychotic features: without psychotic features Qualified Code(s ): F33.2 - Major depressive disorder, recurrent severe without psychotic features Condition: Fair Referrals: Megan Pablo DO [Primary Care Provider] - As per Instructions
[2017-02-28] MEDS ORDERED: NS 1,000 ML IV ONE (17:25)
[2017-02-28 17:38] LABS: % IMMATURE GRANULYOCYTES 0.2 % (0.0-1.1); ABSOLUTE IMMATURE GRANULOCYTES 0.02 10^3/uL (0.00-0.10); ADD DIFF? NO; ADD MORPH? NO; ADD SCAN? NO; ATYPICAL LYMPHOCYTE FLAG 0 (0-99); FRAGMENT RBC FLAG 0 (0-99); HEMATOCRIT 47.2 % (40.0-51.0); HEMOGLOBIN 15.7 g/dL (13.7-17.5); LEFT SHIFT FLG 0 (0-99); LIPEMIA HEMOLYSIS FLAG 80 (0-99); MEAN CELL HEMOGLOBIN 31.3 pg (27.9-34.1); MEAN CELL HEMOGLOBIN CONCENTR. 33.3 g/dL (32.4-36.7); MEAN CELL VOLUME 94.2 fL (81.5-99.8); MEAN PLATELET VOLUME 10.2 fL (8.7-11.7); PLATELET CLUMPS FLAG 0 (0-99); PLATELET COUNT 271 10^3/uL (150-400); RED BLOOD CELL COUNT 5.01 10^6/uL (4.40-6.38); RED CELL DISTRIBUTION WIDTH 12.9 % (11.5-15.2)
[2017-02-28 17:39] LABS: ANION GAP 11 mEq/L (8-16); CALCIUM 9.4 mg/dL (8.5-10.4); CARBON DIOXIDE 21 mEq/l (22-31); CHLORIDE 105 mEq/L (97-110); CREATININE 1.1 mg/dL (0.7-1.3); ETHANOL SERUM < 10 mg/dL (0-10); GLOMERULAR FILTRATION RATE > 60; GLUCOSE 156 mg/dL (70-100); POTASSIUM 4.2 mEq/L (3.5-5.2); SODIUM 137 mEq/L (134-144)
[2017-02-28 18:20] LABS: PHENCYCLIDINE URINE BCH < 6 ng/ml (NEGATIVE); PHENCYCLIDINE URINE BCH NEGATIVE (NEGATIVE); TETRAHYDROCANNABINOL URINE < 5 ng/mL (NEGATIVE); TETRAHYDROCANNABINOL URINE NEGATIVE (NEGATIVE)
--- NOTE | 2017-02-28 23:32 | CPEKG ---
Heart Rate: 64 RR Interval: 938 P-R Interval: 176 QRSD Interval: 82 QT Interval: 420 QTC Interval: 434 P [place]: 55 QRS [place]: 30 T Wave [place]: 33 EKG Severity - BORDERLINE ECG - EKG Impression: SINUS RHYTHM EKG Impression: LOW VOLTAGE THROUGHOUT Electronically Signed By: Pam Pina 01-Mar-2017 06:25:20
[2017-03-01] MEDS ORDERED: LORazepam 1 MG TAB ONE (10:15)
[2017-03-01] MEDS ORDERED: LORazepam 1 MG TAB PO ONE (10:15)
[2017-03-01 10:23] VITALS: BP 123/64; PULSE 74; TEMP 97.3; O2SAT 92
[2017-03-01 10:39] VITALS: RESP 16
== END 2017-03-01 11:10 ==
DX: F33.2 Major depressive disorder, recurrent severe without psychotic features (principal); I10 Essential (primary) hypertension; E86.9 Volume depletion, unspecified
CPT/HCPCS: 80307; G0480

== ENCOUNTER 2018-02-03 13:43 | Emergency (ER) | payer OTHER ==
--- NOTE | 2018-02-03 14:17 | EDPHY ---
HPI/HX/ROS/PE/MDM Narrative: CHIEF COMPLAINT: Shaky, fatigued HISTORY OF PRESENT ILLNESS: This patient is a 77 year old male with history of hypertension, SVT, depression , and anxiety. His was admitted to the hospital yesterday, and he stayed here overnight with her. They live at [facility], and he did not take his prescribed medications including Bupropion 150mg, Cymbalta 60mg, Abilify 10mg, last night or this morning. He states he has had "psychological anxiety at times" and was feeling shaky and unwell due to this. He feels fatigued and weak. He denies feeling this way in the past or having withdrawal symptoms related to his medications in the past. A nurse on the floor recommended he present to the emergency room for evaluation. The patient feels better now that he knows his will likely be discharged soon. He denies dehydration. Denies fever, chills, chest pain, shortness of breath, palpitations , vomiting, diarrhea, urinary complaints, headache, lightheadedness. REVIEW OF SYSTEMS: Aside from elements discussed in the HPI, a comprehensive 10-point review of systems was reviewed and is negative. PAST MEDICAL HISTORY: Hypertension, SVT, Depression, Anxiety. SOCIAL HISTORY: . Lives at [facility]. Denies tobacco or alcohol use. VITAL SIGNS: Reviewed by me GENERAL: Mild tremor. Appears somewhat anxious and tremorous. Well-developed, well-nourished, in no respiratory distress. HEENT: Atraumatic. Eyes: No icterus, no injection. No nystagmus. Mouth: moist mucous membranes. No erythema or lesions. Neck: supple with no adenopathy. No meningismus. LUNGS: Clear to auscultation bilaterally, no wheezes, rhonchi or rales. CARDIAC: Regular rate and rhythm, no rubs, murmurs or gallops. ABDOMEN: Soft, nontender, nondistended, bowel sounds normal. BACK: No CVA tenderness. EXTREMITIES: No trauma. No edema. Range of motion is normal throughout. Mild tremor of hands. NEURO: Alert and oriented, grossly nonfocal. Motor 5/5. SKIN: Warm and dry, no rash. PSYCHIATRIC: Normal mentation, no agitation. Portions of this note were transcribed by a spanish medical interpreter. I personally performed a history, physical exam, medical decision making, and confirmed accuracy of information the transcribed note. ED Course: 77 y/o male presents with fatigue and anxiety after missing his evening and morning doses of his prescribed medications. He is mildly tremulous on exam. Plan to confirm his medications with [facility], and administer the missed doses. Plan for labs including CBC, chemistries, troponin to rule out alternate causes for the patient's symptoms. Plan to administer 150mg PO Bupropion, 60mg PO Cymbalta, 10mg PO Abilify. Administered 500mL IV NS. Laboratory studies unremarkable. Troponin negative. 16:00 Consulted with case management. Arrangements made for patient and his to both be discharged and return to [facility] via taxi. Plan to discharge home in good condition. Follow up and return precautions discussed. He can take his regular evening doses of medications tonight. He is comfortable with this plan. MDM: Diff dx considered included dehydration, electrolyte abnormalities, medication withdrawl, anxiety. - Data Points Laboratory Results: Laboratory Results 02/03/18 14:45 02/03/18 14:45 Medications Given: Discontinued Medications Aripiprazole (Abilify) 10 mg PO EDNOW ONE Stop: 02/04/18 14:35 Last Admin: 02/03/18 15:13 Dose: 10 mg Bupropion HCl (Wellbutrin) 150 mg PO TID NIKI Stop: 08/02/18 15:59 Last Admin: 02/03/18 15:13 Dose: 150 mg Duloxetine HCl (Cymbalta) 60 mg PO EDNOW ONE Stop: 02/04/18 14:34 Last Admin: 02/03/18 15:13 Dose: 60 mg Sodium Chloride (Ns) 500 mls @ 1,000 mls/hr IV EDNOW ONE PRN Reason: Protocol Stop: 02/03/18 15:08 Last Admin: 02/03/18 14:55 Dose: 500 mls General Time Seen by Provider: 02/03/18 14:14 Initial Vital Signs: Initial Vital Signs Temperature (C) 36.5 C 02/03/18 13:49 Heart Rate 98 02/03/18 13:49 Respiratory Rate 18 02/03/18 13:49 Blood Pressure 157/109 H 02/03/18 13:49 O2 Sat (%) 92 02/03/18 13:49 O2 Delivery Mode Room Air Allergies/Adverse Reactions: No Known Allergies Allergy (Verified 02/28/17 16:20) Home Medications: Medication Instructions Recorded ARIPiprazole [Abilify 10 mg (*)] 10 mg PO DAILY 09/21/16 FLUoxetine [Prozac 20 MG (*)] 80 mg PO DAILY 09/21/16 Propranolol HCl [Inderal 40mg (*)] 40 mg PO BIDMEAL 09/21/16 busPIRone [Buspar (*)] 30 mg PO BID 09/21/16 clonazePAM [Klonopin (*)] 0.5 mg PO BID PRN 09/21/16 Omeprazole [Prilosec 20 mg] 40 mg PO DAILY 10/22/16 Acetaminophen [Tylenol 325mg (*)] 650 mg PO Q4HRS PRN #0 tab 10/26/16 Sennosides/Docusate Sodium 1 - 2 tab PO BID #0 tab 10/26/16 [Senokot-S] Departure - Departure Disposition: Home, Routine, Self-Care Clinical Impression: Weakness, Tremor, Anxiety Condition: Good Instructions: Weakness (ED) Additional Instructions: 1. Follow up with your primary care provider in 2-3 days. 2. Continue taking your regular medications as prescribed. It is okay to take your nighttime medications as usual. 3. Return to the emergency department for chest pain, shortness of breath, severe weakness, or other worsening of condition or further concerns. Referrals: Sweta Campbell MD [Primary Care Provider] - As per Instructions Report Scribed for: Pascale Reyez Report Scribed by: Althea Lloyd Date of Report: 02/03/18 Time of Report: 15:24
[2018-02-03] MEDS ORDERED: NS 500 ML IV ONE (14:39)
[2018-02-03 14:54] LABS: PLATELET COUNT 231 10^3/uL (150-400)
[2018-02-03] MEDS ORDERED: buPROPion 100 MG TAB PO SCH (16:00)
[2018-02-03] MEDS ORDERED: LORazepam 1 MG TAB PO ONE (16:02)
[2018-02-03 16:23] VITALS: BP 143/94
--- NOTE | 2018-02-03 18:18 | ASMTCMCOM ---
CM Note CM Note Notes: Pt presented to the ED through triage for shakiness and not getting his medications last night or this morning due to being at [facility] w/his , Binta Navarrete, who was was admitted yesterday. Pt lives in Assisted Living at [facility] ([phone]) with Binta. Pt has his medications administered by staff; this CM spoke w/Christy, Health and Multifold Operator. Christy faxed over pt's medication list. Pt's medications were provided in the ED and Christy was updated on what meds were given. Binta was also ready for discharge from inpatient so this CM provided a cab voucher for pt and Binta to return to [place]. Pt had driven to [facility] today but was not safe to drive due to shakiness. Pt says he will find a way back to [facility] tomorrow to mushroom picker his vehicle. CM available for further assistance if needed. Date Signed: 02/03/2018 06:18 PM Electronically Signed By:Keyla Mcclain RN
--- NOTE | 2018-02-03 19:02 | ASDISCHSUM ---
Discharge Information Plan Status:Assisted Living Medically Cleared to Leave: Discharge Date:02/03/2018 04:23 PM CM D/C Disposition:Assisted Living ADT D/C Disposition:Home, Routine, Self-Care Projected Discharge Date:02/03/2018 04:23 PM Transportation at D/C:Cab Voucher Discharge Delay Reason: Follow-Up Date:02/03/2018 04:23 PM Discharge Slot: Final Diagnosis: Placement Information Patient Contact Information Contact Name:AMY Relationship: Address:[address] Work Phone: City:[place] Alternate Phone: [facility]/Zip Code:[place] [address] Email: Financial Information Financial Class:Medicare Primary Plan Desc:MEDICARE OUTPATIENT Primary Plan Number:[id number] Secondary Plan Desc: Secondary Plan Number: Assessment Information [facility] CM Progress Note CM Note CM Note Notes: Pt presented to the ED through triage for shakiness and not getting his medications last night or this morning due to being at [facility] w/his , Binta Navarrete, who was was admitted yesterday. Pt lives in Assisted Living at [facility] ([phone]) with Binta. Pt has his medications administered by staff; this CM spoke w/Christy, Health and Oil Well Fishing Tool Technician. Christy faxed over pt's medication list. Pt's medications were provided in the ED and Christy was updated on what meds were given. Binta was also ready for discharge from inpatient so this CM provided a cab voucher for pt and Binta to return to [place]. Pt had driven to [facility] today but was not safe to drive due to shakiness. Pt says he will find a way back to [facility] tomorrow to picker tender helper his vehicle. CM available for further assistance if needed. Date Signed: 02/03/2018 06:18 PM Electronically Signed By:Keyla Mcclain RN Intervention Information Intervention Type:Cab Vouchers Date of Service:02/03/2018 06:18 PM Patient Type:Emergency Room Staff Member:PK Mcclain Sharon Hours:0.25 Discipline:Tire Trucker Severity: Comment:Due to time constraint and not being a ble to wait for a Medicaid (Binta has Medicaid) cab, olivia and his Binta were provided a cab voucher.
[2018-02-04] MEDS ORDERED: DULoxetine 60 MG CAP PO ONE (14:33)
[2018-02-04] MEDS ORDERED: ARIPiprazole 10 MG TAB PO ONE (14:34)
== END 2018-02-03 16:23 | disposition home or self-care (01) ==
DX: R53.1 Weakness (principal); R25.1 Tremor, unspecified; F41.9 Anxiety disorder, unspecified; I47.1 Supraventricular tachycardia; I10 Essential (primary) hypertension

== ENCOUNTER 2018-04-21 23:38 | Observation (INO) | payer OTHER ==
[2018-04-21] MEDS ORDERED: NS 1,000 ML IV ONE (23:44)
[2018-04-21] MEDS ORDERED: NITROGLYCERIN 0.4 MG BTL SL PRN (23:44)
--- NOTE | 2018-04-21 23:46 | EDPHY ---
H & P Stated Complaint: CP for 5 hrs w/ shoulder pasin bi-lat Time Seen by Provider: 04/21/18 23:45 HPI/ROS: HPI CHIEF COMPLAINT: Chest pressure HISTORY OF PRESENT ILLNESS: 77-year-old male, history of hypertension, GERD, depression, resides at [facility] presents emergency room with chest pressure. Patient states for the past 4-5 hours he has had substernal chest pressure and some achiness in the bilateral shoulders. No arm pain. Denies nausea denies vomiting denies pleuritic pain or shortness of breath. He has never had this before. EMS brought him to the emergency room where he received full-dose aspirin and nitroglycerin. The nitroglycerin dose did improve his chest discomfort. Past Medical History: Hypertension, GERD, depression Past Surgical History: No recent surgery Social History: Pre denies drugs alcohol tobacco Family History: Noncontributory REVIEW OF SYSTEMS: 10 Systems were reviewed and negative with the exception of the elements mentioned in the history of present illness. Exam Constitutional nontoxic, triage nursing summary reviewed, vital signs reviewed , awake/alert. Eyes normal conjunctivae and sclera, EOMI, PERRLA. HENT normal inspection, atraumatic, moist mucus membranes, no epistaxis, neck supple/ no meningismus, no raccoon eyes. Respiratory clear to auscultation bilaterally, normal breath sounds, no respiratory distress, no wheezing. Cardiovascular rate normal, regular rhythm, no murmur, no edema, distal pulses normal. Gastrointestinal soft, non-tender, no rebound, no guarding, normal bowel sounds, no distension, no pulsatile mass. Genitourinary no CVA tenderness. Musculoskeletal bilateral lower extremity trace pitting edema. no midline vertebral tenderness, full range of motion, no calf swelling, no tenderness of extremities, no meningismus, good pulses, neurovascularly intact. Skin pink, warm, & dry, no rash, skin atraumatic. Neurologic awake, alert and oriented x 3, AAOx3, moves all 4 extremities equally, motor intact, sensory intact, CN II-XII intact, normal cerebellar, normal vision, normal speech. Psychiatric normal mood/affect. Heme/Lymph/Immune no lymphadenopathy. Differential diagnosis includes but is not limited to: ACS, atypical chest pain , pneumothorax, pneumonia, pulmonary embolism, aortic dissection, congestive heart failure, tumor, musculoskeletal pain, esophageal pain, GERD, peptic ulcer disease, pancreatitis Medical Decision Making: IV establishment, full cardiac tech, EKG, troponin , has already receive full-dose aspirin, 2nd dose of nitroglycerin to see if this completely improves his chest discomfort. Re-evaluate. Re-evaluation: EKG interpretation by me on record in [employer] system. Impression time of EKG 2350, sinus rhythm rate of 89 normal sinus rhythm no acute ST elevation or ST depression. 1242AM: Patient feels better after nitroglycerin. Full-dose aspirin given prior to arrival. EKG shows no acute ischemia. Troponin noted to be negative. Chest x-ray reviewed. Patient be admitted the hospital for further cardiac evaluation given his chest pressure. HEART Score for Major Cardiac Events from [place] on 04/22/2018 All calculations should be rechecked by clinician prior to use RESULT SUMMARY: 4 points Moderate Score (4-6 points) Risk of MACE of 12-16.6%. INPUTS: History > 1 = Moderately suspicious EKG > 0 = Normal Age > 2 = 65 Risk factors > 1 = 1-2 risk factors Initial troponin > 0 = normal limit Spoke with patient agrees for admission Spoke with Hospalist Dr. Maya agrees to admit. Source: Patient - Personal History Current Tetanus/Diphtheria Vaccine: Unsure Current Tetanus Diphtheria and Acellular Pertussis (TDAP): Unsure - Medical/Surgical History Hx Asthma: No Hx Chronic Respiratory Disease: No Hx Diabetes: No Hx Cardiac Disease: Yes Hx Renal Disease: No Hx Cirrhosis: No Hx Alcoholism: No Hx HIV/AIDS: No Hx Splenectomy or Spleen Trauma: No Other PMH: htn, clean cardiac cath, depression, anxiety, SVT - Social History Smoking Status: Never smoked Constitutional: Initial Vital Signs Temperature (C) 37.5 C 04/21/18 23:40 Heart Rate 101 H 04/21/18 23:40 Respiratory Rate 16 04/21/18 23:40 Blood Pressure 112/95 H 04/21/18 23:40 O2 Sat (%) 95 04/21/18 23:40 O2 Delivery Mode Room Air Allergies/Adverse Reactions: No Known Allergies Allergy (Verified 02/28/17 16:20) Home Medications: Medication Instructions Recorded ARIPiprazole [Abilify 10 mg (*)] 10 mg PO DAILY 09/21/16 FLUoxetine [Prozac 20 MG (*)] 80 mg PO DAILY 09/21/16 Propranolol HCl [Inderal 40mg (*)] 40 mg PO BIDMEAL 09/21/16 busPIRone [Buspar (*)] 30 mg PO BID 09/21/16 clonazePAM [Klonopin (*)] 0.5 mg PO BID PRN 09/21/16 Omeprazole [Prilosec 20 mg] 40 mg PO DAILY 10/22/16 Acetaminophen [Tylenol 325mg (*)] 650 mg PO Q4HRS PRN #0 tab 10/26/16 Sennosides/Docusate Sodium 1 - 2 tab PO BID #0 tab 10/26/16 [Senokot-S] Medical Decision Making - Diagnostics Imaging Results: Imaging Impressions Chest X-Ray 04/21/18 23:45 Impression: Patchy bibasilar reticular opacities, which may represent underlying fibrosis, atelectasis, or less likely pneumonia. Would correlate. - Data Points Laboratory Results: Laboratory Results 04/22/18 00:05 04/21/18 23:45 04/22/18 04/21/18 04/21/18 00:05 23:45 23:45 WBC 11.90 10^3/uL H 10^3/uL (3.80-9.50) RBC 4.45 10^6/uL 10^6/uL (4.40-6.38) Hgb 13.9 g/dL g/dL (13.7-17.5) Hct 41.3 % % (40.0-51.0) MCV 92.8 fL fL (81.5-99.8) MCH 31.2 pg pg (27.9-34.1) MCHC 33.7 g/dL g/dL (32.4-36.7) RDW 13.2 % % (11.5-15.2) Plt Count 259 10^3/uL 10^3/uL (150-400) MPV 9.6 fL fL (8.7-11.7) Neut % (Auto) 75.2 % H % (39.3-74.2) Lymph % (Auto) 13.4 % L % (15.0-45.0) [place] % (Auto) 7.9 % % (4.5-13.0) Eos % (Auto) 2.9 % % (0.6-7.6) Baso % (Auto) 0.3 % % (0.3-1.7) Nucleat RBC Rel Count 0.0 % % (0.0-0.2) Absolute Neuts (auto) 8.96 10^3/uL H 10^3/uL (1.70-6.50) Absolute Lymphs (auto) 1.59 10^3/uL 10^3/uL (1.00-3.00) Absolute Monos (auto) 0.94 10^3/uL H 10^3/uL (0.30-0.80) Absolute Eos (auto) 0.34 10^3/uL 10^3/uL (0.03-0.40) Absolute Basos (auto) 0.04 10^3/uL 10^3/uL (0.02-0.10) Absolute Nucleated RBC 0.00 10^3/uL 10^3/uL (0-0.01) Immature Gran % 0.3 % % (0.0-1.1) Immature Gran # 0.03 10^3/uL 10^3/uL (0.00-0.10) PT INR APTT Sodium 142 mEq/L mEq/L (135-145) Potassium 4.7 mEq/L mEq/L (3.3-5.0) Chloride 108 mEq/L mEq/L (97-110) Carbon Dioxide 26 mEq/l mEq/l (22-31) Anion Gap 8 mEq/L mEq/L (6-14) BUN 23 mg/dL mg/dL (7-23) Creatinine 1.2 mg/dL mg/dL (0.7-1.3) Estimated GFR 59 Glucose 99 mg/dL mg/dL (70-100) Calcium 9.4 mg/dL mg/dL (8.5-10.4) Magnesium 2.0 mg/dL mg/dL (1.6-2.3) Total Bilirubin 0.4 mg/dL mg/dL (0.1-1.4) Conjugated Bilirubin 0.2 mg/dL mg/dL (0.0-0.5) Unconjugated Bilirubin 0.2 mg/dL mg/dL (0.0-1.1) AST 19 IU/L IU/L (17-59) ALT 36 IU/L IU/L (21-72) Alkaline Phosphatase 74 IU/L IU/L (38-126) Creatine Kinase 90 IU/L IU/L (0-224) CK-MB (CK-2) Fraction 3.82 ng/mL ng/mL (0.00-4.55) POC Troponin I 0.00 ng/mL ng/mL (0.00-0.08) NT-Pro-B Natriuret Pep 433 pg/mL pg/mL (0-450) Total Protein 6.5 g/dL g/dL (6.3-8.2) Albumin 3.6 g/dL g/dL (3.5-5.0) 04/21/18 23:45 WBC RBC Hgb Hct MCV MCH MCHC RDW Plt Count MPV Neut % (Auto) Lymph % (Auto) [place] % (Auto) Eos % (Auto) Baso % (Auto) Nucleat RBC Rel Count Absolute Neuts (auto) Absolute Lymphs (auto) Absolute Monos (auto) Absolute Eos (auto) Absolute Basos (auto) Absolute Nucleated RBC Immature Gran % Immature Gran # PT 12.7 SEC SEC (12.0-15.0) INR 0.93 (0.83-1.16) APTT 25.1 SEC SEC (23.0-38.0) Sodium Potassium Chloride Carbon Dioxide Anion Gap BUN Creatinine Estimated GFR Glucose Calcium Magnesium Total Bilirubin Conjugated Bilirubin Unconjugated Bilirubin AST ALT Alkaline Phosphatase Creatine Kinase CK-MB (CK-2) Fraction POC Troponin I NT-Pro-B Natriuret Pep Total Protein Albumin Medications Given: Discontinued Medications Sodium Chloride (Ns) 1,000 mls @ 0 mls/hr IV EDNOW ONE; Wide Open PRN Reason: Protocol Stop: 04/21/18 23:45 Last Admin: 04/21/18 23:49 Dose: 1,000 mls Point of Care Test Results: Chemistry 04/21/18 23:45 POC Troponin I 0.00 ng/mL ng/mL (0.00-0.08) Departure - Departure Clinical Impression: Chest pain Condition: Fair Referrals: Patient,NotPresent [Primary Care Provider] - As per Instructions
[2018-04-22 00:01] LABS: INR 0.93 (0.83-1.16); PROTIME(PATIENT) 12.7 SEC (12.0-15.0)
[2018-04-22 00:10] LABS: CREATINE KINASE 90 IU/L (0-224)
[2018-04-22 00:10] LABS: PLATELET COUNT 259 10^3/uL (150-400)
[2018-04-22] MEDS ORDERED: ONDANSETRON 4 MG/2 ML VIAL IVP PRN (00:41)
[2018-04-22] MEDS ORDERED: ONDANSETRON DISINTEGRATING 4 MG TAB PO PRN (00:41)
[2018-04-22] MEDS ORDERED: ACETAMINOPHEN 325 MG TAB PO PRN (00:41)
[2018-04-22] MEDS ORDERED: NITROGLYCERIN 0.4 MG BTL SL PRN (00:44)
[2018-04-22] MEDS ORDERED: LORazepam 0.5 MG TAB PO ONE (01:20)
--- NOTE | 2018-04-22 01:29 | PDGENHP ---
History and Physical - Chief Complaint Chest pain - History of Present Illness 77 yo M w/ hx of anxiety and depression presents with chest pain. Patient tells me he had severe, central chest pressure today. This lasted 4 hours and radiated to both shoulders. His pain improved with aspirin and nitroglycerin. He reports some similar pain in the past but much milder and never with radiation to his shoulders. He denies any prior history of heart disease. He is a non-smoker but his mother had heart disease. He takes no cardiac medication. He does not think he would be able to exercise to a satisfactory work-load as he is fairly sedimentary. His ECG does not show acute ischemia and initial troponin negative. Case discussed with ED physician Dr. Sheffield; records reviewed in EMR. History Information - Allergies/Home Medication List Allergies/Adverse Reactions: No Known Allergies Allergy (Verified 02/28/17 16:20) Home Medications: ARIPiprazole [Abilify 10 mg (*)] 10 mg PO DAILY 09/21/16 [Last Taken 10/21/16] FLUoxetine [Prozac 20 MG (*)] 80 mg PO DAILY 09/21/16 [Last Taken 10/21/16] Propranolol HCl [Inderal 40mg (*)] 40 mg PO BIDMEAL 09/21/16 [Last Taken 18:00] busPIRone [Buspar (*)] 30 mg PO BID 09/21/16 [Last Taken 10/21/16 21:00] clonazePAM [Klonopin (*)] 0.5 mg PO BID PRN 09/21/16 [Last Taken 10/22/16] Omeprazole [Prilosec 20 mg] 40 mg PO DAILY 10/22/16 [Last Taken 10/21/16] I have personally reviewed and updated: family history, medical history - Past Medical History Additional medical history: Anxiety, depression - Surgical History Additional surgical history: LLE skin graft - Family History Positive for: CAD - Social History Smoking Status: Never smoked Review of Systems Review of Systems: ROS: 10pt was reviewed & negative except for what was stated in HPI & below Physical Exam Physical Exam: Temp Pulse Resp BP Pulse Ox 37.5 C 72 16 112/95 H 95 04/21/18 23:40 04/22/18 01:01 04/22/18 01:01 04/22/18 01:01 04/22/18 01:01 Constitutional: no apparent distress, appears nourished Eyes: PERRL, EOMI Ears, Nose, Mouth, Throat: moist mucous membranes, no oral mucosal ulcers Cardiovascular: regular rate and rhythym, systolic murmur Respiratory: no respiratory distress, clear to auscultation Gastrointestinal: normoactive bowel sounds, soft, non-tender abdomen Skin: warm, normal color Musculoskeletal: full muscle strength, no muscle tenderness Neurologic: AAOx3, CN II-XII Intact Psychiatric: interacting appropriately, flat affect Lab Data & Imaging Review 04/22/18 00:05 04/21/18 23:45 WBC 11.90 10^3/uL (3.80-9.50) H 04/22/18 00:05 RBC 4.45 10^6/uL (4.40-6.38) 04/22/18 00:05 Hgb 13.9 g/dL (13.7-17.5) 04/22/18 00:05 Hct 41.3 % (40.0-51.0) 04/22/18 00:05 MCV 92.8 fL (81.5-99.8) 04/22/18 00:05 MCH 31.2 pg (27.9-34.1) 04/22/18 00:05 MCHC 33.7 g/dL (32.4-36.7) 04/22/18 00:05 RDW 13.2 % (11.5-15.2) 04/22/18 00:05 Plt Count 259 10^3/uL (150-400) 04/22/18 00:05 MPV 9.6 fL (8.7-11.7) 04/22/18 00:05 Neut % (Auto) 75.2 % (39.3-74.2) H 04/22/18 00:05 Lymph % (Auto) 13.4 % (15.0-45.0) L 04/22/18 00:05 [place] % (Auto) 7.9 % (4.5-13.0) 04/22/18 00:05 Eos % (Auto) 2.9 % (0.6-7.6) 04/22/18 00:05 Baso % (Auto) 0.3 % (0.3-1.7) 04/22/18 00:05 Nucleat RBC Rel Count 0.0 % (0.0-0.2) 04/22/18 00:05 Absolute Neuts (auto) 8.96 10^3/uL (1.70-6.50) H 04/22/18 00:05 Absolute Lymphs (auto) 1.59 10^3/uL (1.00-3.00) 04/22/18 00:05 Absolute Monos (auto) 0.94 10^3/uL (0.30-0.80) H 04/22/18 00:05 Absolute Eos (auto) 0.34 10^3/uL (0.03-0.40) 04/22/18 00:05 Absolute Basos (auto) 0.04 10^3/uL (0.02-0.10) 04/22/18 00:05 Absolute Nucleated RBC 0.00 10^3/uL (0-0.01) 04/22/18 00:05 Immature Gran % 0.3 % (0.0-1.1) 04/22/18 00:05 Immature Gran # 0.03 10^3/uL (0.00-0.10) 04/22/18 00:05 PT 12.7 SEC (12.0-15.0) 04/21/18 23:45 INR 0.93 (0.83-1.16) 04/21/18 23:45 APTT 25.1 SEC (23.0-38.0) 04/21/18 23:45 Sodium 142 mEq/L (135-145) 04/21/18 23:45 Potassium 4.7 mEq/L (3.3-5.0) 04/21/18 23:45 Chloride 108 mEq/L (97-110) 04/21/18 23:45 Carbon Dioxide 26 mEq/l (22-31) 04/21/18 23:45 Anion Gap 8 mEq/L (6-14) 04/21/18 23:45 BUN 23 mg/dL (7-23) 04/21/18 23:45 Creatinine 1.2 mg/dL (0.7-1.3) 04/21/18 23:45 Estimated GFR 59 04/21/18 23:45 Glucose 99 mg/dL (70-100) 04/21/18 23:45 Calcium 9.4 mg/dL (8.5-10.4) 04/21/18 23:45 Magnesium 2.0 mg/dL (1.6-2.3) 04/21/18 23:45 Total Bilirubin 0.4 mg/dL (0.1-1.4) 04/21/18 23:45 Conjugated Bilirubin 0.2 mg/dL (0.0-0.5) 04/21/18 23:45 Unconjugated Bilirubin 0.2 mg/dL (0.0-1.1) 04/21/18 23:45 AST 19 IU/L (17-59) 04/21/18 23:45 ALT 36 IU/L (21-72) 04/21/18 23:45 Alkaline Phosphatase 74 IU/L (38-126) 04/21/18 23:45 Creatine Kinase 90 IU/L (0-224) 04/21/18 23:45 CK-MB (CK-2) Fraction 3.82 ng/mL (0.00-4.55) 04/21/18 23:45 POC Troponin I 0.00 ng/mL (0.00-0.08) 04/21/18 23:45 NT-Pro-B Natriuret Pep 433 pg/mL (0-450) 04/21/18 23:45 Total Protein 6.5 g/dL (6.3-8.2) 04/21/18 23:45 Albumin 3.6 g/dL (3.5-5.0) 04/21/18 23:45 Imaging Review: Imaging Impressions Chest X-Ray 04/21/18 23:45 Impression: Patchy bibasilar reticular opacities, which may represent underlying fibrosis, atelectasis, or less likely pneumonia. Would correlate. Visualized and Interpreted EKG results: Yes EKG Interpretation: Positive for: normal sinsus rhythm Assessment & Plan Assessment: 77 yo M w hx of anxiety and depression presents with chest pain. Plan: 1. Chest pain - Pressure present for four hours with radiation to bilateral shoulders; improved with aspirin and NTG. ECG (personally reviewed/interpreted) not concerning for acute ischemia. Initial troponin negative. HEART score of 4 denoting need for further testing. - Admit to PCU for observation - Monitor on telemetry, trend cardiac enzymes - NTG and ECG PRN for chest - Will order Lexiscan stress w/ NM noting inability to exercise 2. Anxiety/depression - Flat affect during my evaluation, complaining of anxiety. - Continue home medications pending reconciliation Diet - NPO Code - Regular, caffeine free Ppx - LMWH Dispo - Admit under observation status
[2018-04-22 04:42] LABS: PLATELET COUNT 238 10^3/uL (150-400)
[2018-04-22] MEDS ORDERED: ENOXAPARIN 40 MG/0.4 ML SYR SC SCH (09:00)
[2018-04-22] MEDS ORDERED: REGADENOSON 0.4 MG/5 ML SYR IVP ONE (09:04)
[2018-04-22 11:37] VITALS: BP 123/84
[2018-04-22] MEDS ORDERED: ARIPiprazole 10 MG TAB PO SCH (11:45)
[2018-04-22] MEDS ORDERED: PROPRANOLOL HCL 40 MG TAB PO SCH (11:45)
[2018-04-22] MEDS ORDERED: SENNOSIDES 1 TAB PO SCH (11:45)
[2018-04-22] MEDS ORDERED: CYANO/VITAMIN B12 1000 MCG TAB PO SCH (11:45)
[2018-04-22] MEDS ORDERED: buPROPion SR 150 MG TAB PO SCH (11:45)
[2018-04-22] MEDS ORDERED: GABAPENTIN 100 MG CAP PO SCH (11:45)
[2018-04-22] MEDS ORDERED: DULoxetine 60 MG CAP PO SCH (11:45)
[2018-04-22] MEDS ORDERED: PANTOPRAZOLE SODIUM 40 MG TAB PO SCH (12:00)
--- NOTE | 2018-04-22 14:36 | PDCARST ---
CAR Stress Test Results Type of Stress Test: Lexiscan stress test Indication: chest pain Description of Procedure: After informed consent was obtained, pt was established to ECG, blood pressure, HR and oximetry monitoring. STRESS EKG AND HEMODYNAMIC DATA. Resting heart rate: 75 BPM. Resting ECG: SR. Resting blood pressure: 128/70 mmHg. O2 saturation at rest: 90%. Peak heart rate: 98 BPM. Peak blood pressure: 128/70 mmHg. Arrhythmias: none. Symptoms: The patient experienced no typical symptoms of angina during stress or recovery. Stress/Infusion ECG: No change in rhythm with no significant ST/T wave changes. Stress/infusion O2 saturation: 94% Impression: Uneventful Lexiscan infusion. Conclusion: Await nuclear images.
--- NOTE | 2018-04-22 14:52 | ASMTLCPROG ---
Notes Note: Notes: TLC STAT REQUEST - Responded to page for TLC Stat request. I spoke briefly with MARLA Talley on nature of the request. She denied having heard any suicidal ideation/intent/plans voiced by the pt. I met briefly with the patient, introduced myself and nature of my meeting with him. Pt endorsed having some depression and on the medical floor for chest pain. Asked pt specifically if he has been having any recent/current thoughts about suicide or wishing he were . Pt clearly denied having any suicidal ideation/intent/plans to harm himself. Pt stated he would like to be able to talk to clergy staff. Debriefed CM and nurse on [facility] policy/protocol for TLC Stat requests and for the [place] Suicide Severity Rating Scale is to be utilized and have several items endorsed by a pt to trigger TLC Staf request. Date Signed: 04/22/2018 02:51 PM Electronically Signed By:Mik Rubi
--- NOTE | 2018-04-22 16:00 | ASMTCMCOM ---
CM Note CM Note Notes: 04/22/2018 Case Management Note Met w/pt to discuss discharge needs. TLC cleared pt for safe discharge. Provided info on counselors that take Medicare. Pt reports that Dr. Sweta Campbell from [facility] is primary provider [phone]. Left VM on Marianne Aparicio RN at [facility] to see pt as a priority tomorrow at [facility] to assist with supports for depression and anxiety. Faxed discharge paperwork to [facility]. Left VM with Admission coordinator as well as health and executive coordinator at [facility]. RN called report. Pt to transport self home using [employer]. Pt to pay for taxi himself, no voucher provided. Case management d/c poc: home with visit from [facility] as outpatient. Date Signed: 04/22/2018 04:00 PM Electronically Signed By:Gerri Hill RN
--- NOTE | 2018-04-22 16:02 | ASDISCHSUM ---
Discharge Information Plan Status:Home with No Needs Medically Cleared to Leave:04/22/2018 Discharge Date:04/22/2018 CM D/C Disposition:Home, Routine, Self-Care ADT D/C Disposition:Home Health Service Projected Discharge Date:04/22/2018 11:00 AM Transportation at D/C:Taxicab Discharge Delay Reason: Follow-Up Date:04/22/2018 11:00 AM Discharge Slot: Final Diagnosis: Placement Information Referral Type:Assisted Living Residence Referral ID:[id number] Provider Name:Tomy Shakeel Leary Address 1:[id number] 2: City:[place] Selection Factors: State:[place] Patient Contact Information Contact Name:AMY Relationship: Address:[address] Work Phone: City:[place] Alternate Phone: State/Zip Code:[place] [address] Email: Financial Information Financial Class:Medicare Primary Plan Desc:MEDICARE OUTPATIENT Primary Plan Number:[id number] Secondary Plan Desc: Secondary Plan Number: Assessment Information LACE LACE Length of stay for Answers: Less than 1 day current admission Acuity / Level of Answers: No Care: Did the patient have an inpatient admission? Comorbidities - select Answers: Other Notes: HTN; GERD all that apply # of Emergency department Answers: 1-2 visits in the last 6 months Social determinants Answers: Mental health diagnosis (anxiety, depression, pers onality disorders, etc.) Score: 5 Date Signed: 04/22/2018 04:01 PM Electronically Signed By:Gerri Hill RN TLC Progress Note Notes Note: Notes: TLC STAT REQUEST - Responded to page for TLC Stat request. I spoke briefly with MARLA Talley on nature of the request. She denied having heard any suicidal ideation/intent/plans voiced by the pt. I met briefly with the patient, introduced myself and nature of my meeting with him. Pt endorsed having some depression and on the medical floor for chest pain. Asked pt specifically if he has been having any recent/current thoughts about suicide or wishing he were . Pt clearly denied having any suicidal ideation/intent/plans to harm himself. Pt stated he would like to be able to talk to clergy staff. Debriefed CM and nurse on [facility] policy/protocol for TLC Stat requests and for the [place] Suicide Severity Rating Scale is to be utilized and have several items endorsed by a pt to trigger TLC Staf request. Date Signed: 04/22/2018 02:51 PM Electronically Signed By:Mik Rubi [facility] CM Progress Note CM Note CM Note Notes: 04/22/2018 Case Management Note Met w/pt to discuss discharge needs. [facility] cleared pt for safe discharge. Provided info on counselors that take Medicare. Pt reports that Dr. Sweta Campbell from [facility] is primary provider [phone]. Left VM on Marianne Aparicio RN at [facility] to see pt as a priority tomorrow at [facility] to assist with supports for depression and anxiety. Faxed discharge paperwork to [facility]. Left VM with Admission coordinator as well as health and membership coordinator at [facility]. RN called report. Pt to transport self home using [employer]. Pt to pay for taxi himself, no voucher provided. Case management d/c poc: home with visit from [facility] as outpatient. Date Signed: 04/22/2018 04:00 PM Electronically Signed By:Gerri Hill RN Intervention Information Intervention Type:*MOLINA-Signed Date of Service:04/22/2018 12:21 PM Patient Type:Observation Staff Member:Monae Olivarez Hours: Discipline: Severity: Comment:
--- NOTE | 2018-04-22 18:57 | GDS ---
DISCHARGE DIAGNOSES: 1. Noncardiac chest pain. 2. Severe anxiety and depression. HISTORY: This is a 77-year-old male, who presented with chest pain. He has no prior history of shira nary artery disease. He was admitted to observation. He had a nuclear medicine stress test that was negative for any ischemia. He was reassured that his chest pain is unlikely to be cardiac. After stress test he had recurrence of chest pain similar to presentation. He was very definitely as siena for an Ativan prescription, stating his anxiety was out of control. Case Management was concern ed he could possibly be depressed to the point of suicidality. TLC was consulted and came and interv iewed him and felt that he did not have indications for an M1 hold. He was given outpatient resource s. It is felt his chest pain is likely due to severe anxiety. He should follow up closely with [facility] care. DISCHARGE MEDICATIONS: Please see computer record for full detailed list. There are no new medicati ons given at time of hospital discharge. ADDITIONAL DISCHARGE INSTRUCTIONS: Follow up with primary care for anxiety management. /[id number]/MODL
--- NOTE | 2018-04-23 23:58 | CPEKG ---
Test Reason : OPEN Blood Pressure : / mmHG Vent. Rate : 089 BPM Atrial Rate : 089 BPM P-R Int : 170 ms QRS Dur : 082 ms QT Int : 343 ms P-R-T Axes : 040 -19 026 degrees QTc Int : 418 ms Sinus rhythm Borderline left axis deviation Confirmed by Sabino Mann ([id number]) on 04/23/2018 11:57:52 PM Also confirmed by Sabino Mann ([id number]) on 04/23/2018 11:58:04 PM Referred By: Confirmed By:Sabino Mann
== END 2018-04-22 15:56 | disposition home health service (06) ==
LOC: EDUNIT# → F2W 04-22 01:18
PROVIDERS: ADMIT Student in an Organized Health Care Education/Training Program; ATTEND Student in an Organized Health Care Education/Training Program
DX: R07.89 Other chest pain (principal); F41.8 Other specified anxiety disorders
CPT/HCPCS: 71045; 78452; 93005; 93017; 96360; 96372; 97161; 97166; 99285; A9500; G0378; G8978; G8979; G8980; G8987; G8988; G8989; J1650; J2785; 84484-PO

== ENCOUNTER 2019-01-02 15:55 | Inpatient (IN) | payer OTHER | END 2019-01-04 18:38 | disposition home health service (06) | LOC: F3E 19:54 ==